=== PATIENT | female | born 1970 | race Caucasian/White ===

== ENCOUNTER → 2025-02-26 12:48 | Outpatient (BNVA) | payer OTHER, SELFPAY | PROVIDERS: Visit Provider Physician Assistant | DX: S52.125A Nondisplaced fracture of head of left radius, initial encounter for closed fracture (principal); W18.30XA Fall on same level, unspecified, initial encounter | CPT/HCPCS: 29125; 73080; 99204 ==

== ENCOUNTER → 2025-03-03 13:15 | Outpatient (BNVA) | payer OTHER, SELFPAY | PROVIDERS: Visit Provider Physician Assistant | DX: S52.125D Nondisplaced fracture of head of left radius, subsequent encounter for closed fracture with routine healing (principal); W18.30XD Fall on same level, unspecified, subsequent encounter; M25.512 Pain in left shoulder; M25.532 Pain in left wrist | CPT/HCPCS: 73030; 99215 ==

== ENCOUNTER 2025-03-11 08:10 | Outpatient (REF) | payer OTHER, SELFPAY ==
--- NOTE | ~2025-03-11 | XR_ITS ---
EXAMINATION: XR ELBOW, LEFT CLINICAL INFORMATION: M25.522 - Pain in left elbow COMPARISON: 02/26/2025 TECHNIQUE: AP, lateral, and oblique views of the left elbow. FINDINGS: Again seen is an intra-articular fracture involving the radial head. There is no gap or step-off. Fracture line shows increasing density consistent with healing. Fat pad displacement has decreased since the prior. XR/XR elbow LT min 3V IMPRESSION: Healing radial head fracture Electronically signed by: Prasad Tena MD 03/11/2025 11:13 AM EDT
== END 2025-03-11 08:11 | disposition home or self-care (01) ==
LOC: HO.HOSX 08:10
PROVIDERS: Visit Provider Physician Assistant
DX: S52.125D Nondisplaced fracture of head of left radius, subsequent encounter for closed fracture with routine healing (principal); W19.XXXD Unspecified fall, subsequent encounter; Y99.0 Civilian activity done for income or pay
CPT/HCPCS: 73080; 99202

== ENCOUNTER 2025-03-11 10:55 | Outpatient (AMB) | payer OTHER, SELFPAY ==
--- NOTE | 2025-03-11 11:07 | A.OFFVIS_ITS ---
Vital Signs 03/11/25 11:16 Height 5 ft 4 in Weight 170 lb BMI 29.2 Intake Visit Reasons: Fracture/ HOST HOSTESS- Left Radial head fx DOI 02/26/25 Intake Note: Radha is a 55 year old right hand dominant female who presents today as a new patient for a workers comp evaluation of left radial head fracture, DOI 02/26/25. Patient was seen at work connection after she sustained a fall at work. She was placed in a posterior splint and referred to orthopedics. Today patient reports her shoulder causes her the most discomfort. No numbness or tingling. Complaints of pain in small finger. She continues to work with only restriction of able to leave if her arm becomes sore. Allergies sulfamethoxazole (From Bactrim) Allergy (Verified 03/11/25 11:14) Redness of Skin trimethoprim (From Bactrim) Allergy (Verified 03/11/25 11:14) Redness of Skin Medication List - Last Reconciled 03/11/25 by Francesca Cantu PA-C atorvastatin 10 mg PO DAILY celecoxib (Celebrex) 200 mg PO BID 30 days fluoxetine 80 mg PO DAILY gabapentin 600 mg PO QID losartan 75 mg PO DAILY pantoprazole 40 mg PO BID HPI HPI Fracture/ HOST HOSTESS- Left Radial head fx DOI 02/26/25: Details: 55 yo female presents to the office today for an injury she sustained to the left elbow on 02/26/25 . She states she was walking at work and fell landing on the left side. She was seen by work connection where x-rays were obtained and showed a radial head fracture. She was placed in a splint and referred to our office for ortho follow up She has been working since the injury without patient care. 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 No open wounds. She can fully extend and flex the elbow she can supinate and pronate without pain. Neurovascularly intact. Office Procedures AMB Fracture Care Fracture Billing Code: Fracture Billing Code Results Reviewed Results Reviewed: Xrays were obtained in the office today and personally reviewed by me of the left elbow show non displaced radial head fracture Assessment & Plan Assessment & Plan (1) Left radial head fracture: Code(s): S52.122A - Displaced fracture of head of left radius, initial encounter for closed fracture Category: Medical Plan: We discussed options today which includes continued conservative management for a nondisplaced radial head fracture. She has good range of motion and we will continue working on this on her own. She will continue with work restrictions returning to work on 03/11 with no patient contact. She will avoid lifting anything heavier than 5 lb. I would like to see her back in 4 weeks with x- rays, sooner if needed. Orders: Orders XR elbow LT min 3V Today M25.522 - Pain in left elbow Medications: New celecoxib (Celebrex) 200 mg PO BID 60 caps 3RF 30 days Coding Level of Care Code New Pt Level 3 (42380) Complex EM visit Add On G2211 Diagnoses Left radial head fracture S52.122A CPT Codes Fracture Care - Fracture Billing Code: Fracture Billing Code ([id number])
[2025-03-11 11:16] VITALS: BMI 29.2
== END 2025-03-11 11:38 | disposition home or self-care (01) ==
LOC: HO.HOS 10:55
PROVIDERS: Visit Provider Physician Assistant
DX: S52.122A Displaced fracture of head of left radius, initial encounter for closed fracture (principal)
CPT/HCPCS: 99203; G2211

== ENCOUNTER → 2025-03-11 11:04 | Outpatient (BNV) | payer OTHER, SELFPAY | PROVIDERS: Visit Provider Radiology Diagnostic Radiology | DX: S52.121D Displaced fracture of head of right radius, subsequent encounter for closed fracture with routine healing (principal) | CPT/HCPCS: 73080 ==

== ENCOUNTER 2025-03-29 09:06 | Outpatient (AMB) | payer OTHER, SELFPAY ==
--- NOTE | 2025-03-29 09:12 | MHC.OFFVIS ---
Intake Visit Reasons: migraine without status migrainosus Allergies sulfamethoxazole (From Bactrim) Allergy (Verified 03/11/25 11:14) Redness of Skin trimethoprim (From Bactrim) Allergy (Verified 03/11/25 11:14) Redness of Skin HPI Comments Details: 55-year-old female with family history of tremor and anxiety disorder, being treated for depression for many years, presenting with concerns regarding tremor and related symptoms. Over the past year, she has noticed tremors primarily in her hands, particularly when others point them out during daily activities. The tremor is not severe enough to disrupt tasks like holding a cup. Associated with these are episodes of involuntary movements or jumps during the night, ranging from 20 to 30 occurrences. She also reports numbness in her face and increased nervousness. She is concerned about whether these symptoms could indicate a more serious condition like Parkinson's disease or multiple sclerosis, although she has been reassured that these symptoms are more consistent with benign essential tremor associated with anxiety. The patient's background includes a prescription of Fluoxetine 80 mg since 1996 for depression, with noted seasonal increases in depressive symptoms, and Gabapentin for managing hot flashes. Her family history includes anxiety disorders in her siblings and her youngest son who also experiences seizures. 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 Complain of fatigue. HEENT:?No vision changes, hearing loss, nasal congestion, sore throat. Cardiovascular:?No chest pain, palpitations, orthopnea, PND, or leg swelling. Respiratory:?No cough, shortness of breath, wheezing, or hemoptysis. Gastrointestinal:?No nausea, vomiting, abdominal pain, diarrhea, or constipation. Genitourinary:?No dysuria, frequency, incontinence, or hematuria. Musculoskeletal:?No joint pain, stiffness, weakness, or muscle aches. Neurological:? Has tremor headache and neck pain. Also complain of dizziness. Psychiatric:? Significant anxiety. Endocrine:?No heat/cold intolerance, polydipsia, polyuria, or hair/skin changes. Hematologic/Lymphatic:?No easy bruising, bleeding, or lymphadenopathy. Integumentary (Skin):?No rash, lesions, itching, or color changes. Allergic/Immunologic:?No seasonal allergies, hives, or recurrent infections. Physical Exam Neuro Other: Mental Status: Alert and oriented to person, place, and time. Normal attention. Normal spontaneous speech, fluency, and comprehension. No obvious issues with mood and memory. Affect is quite anxious. Cranial Nerves: CN II: Visual uribe full to confrontation, visual acuity intact. CN III, IV, : Pupils equal, round, reactive to light and accommodation. Extraocular movements are normal. CN V: Facial sensation is normal. CN VII: Facial movements symmetrical. CN VIII: Hearing intact to bedside conversation is normal. CN IX, X: Palate elevates symmetrically. CN XI: Shoulder shrug and head turn symmetrical. CN XII: Tongue midline without atrophy or fasciculations. Motor: Bulk and tone normal in all extremities. No significant muscle weakness in arms and legs. No drift. Reflexes: Deep tendon reflexes 2+ and symmetric. Plantar response down-going bilaterally. Coordination: Khtyzl-xv-gyiq and aazq-yl-[id number] testing normal. No dysmetria. Gait and Station: No obvious gait abnormality. No ataxia or instability. Facial expression blinking were normal. There was mild bilateral hand postural tremor. Speech: Normal; no dysarthria or tremor. 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 Benign essential familial tremor 2. Chronic anxiety/depression with family history of similar problems 3. 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 Reassurance and education 2. Propranolol 20 mg 1 a day as needed 3. EEG to rule out possibility of seizure disorder Orders: Orders EEG Routine Today G25.3 - Myoclonus, G40.909 - Epilepsy, unspecified, not intractable, without status epilepticus Medications: New propranolol 20 mg orally one a day as needed; 30 tabs 0RF Coding Level of Care Code New Pt Level 4 (31237) Diagnoses Benign familial tremor G25.0 Generalized anxiety disorder F41.1 Anxiety disorder type: generalized anxiety disorder Sleep myoclonus G25.3
--- OUTSIDE RECORDS SUMMARY | 2025-03-29 09:58 | XMS_ITS | Clinical Summary ---
Author Organization [employer] Address [address] [place] [address] Care Team Providers Care Director Special Education Name Role Phone Nidhi Spencer AEROSPACE MEDICINE PHYSICIAN Primary Care Provider [phone] Allergies Active Allergy Reactions Criticality Noted Date Comments Sulfamethoxazole-Trimethoprim Rash Low 2019 Medications atorvastatin (Lipitor) 10 MG tablet Take 10 mg by mouth in the morning. 2 Active [facility] Headache Relief 250-250-65 MG tablet TAKE 2 TABLETS BY MOUTH NEEDED PAIN 2 Active pantoprazole (ProtoNix) 40 MG EC tabletIndications :Chronic gastritis, presence of bleeding unspecified, unspecified gastritis type Take 1 tablet (40 mg) by mouth 2 times daily. /90 days 180 tablet 3 4 Active cyclobenzaprine (Flexeril) 5 MG tablet TAKE 1 TABLET BY MOUTH AT BEDTIME NEEDED FOR MUSCLE SPASM 30 tablet 5 Active Additional Information Patient not taking.Reported on 08/12/2024 losartan (Cozaar) 50 MG tabletIndications :Hypertension, unspecified type TAKE 1 AND 1/2 TABLETS BY MOUTH DAILY/90 DAYS 135 tablet 3 5 Active gabapentin (Neurontin) 600 MG tabletIndications :Low back pain associated with a spinal disorder other than radiculopathy or spinal stenosis Take 1 tablet (600 mg) by mouth 4 times daily. 120 tablet 3 5 Active atorvastatin (Lipitor) 10 MG tablet Take 1 tablet (10 mg) by mouth Once per day. 90 tablet 2 5 026 Active FLUoxetine (PROzac) 40 MG capsuleIndication s:Depressive disorder TAKE 2 CAPSULES BY MOUTH ONCE DAILY FOR 90 DAYS 180 capsule 5 Active Active Problems Problem Noted Date Diagnosed Date Low back pain associated wit h a spinal disorder other than radiculopathy or spinal stenosis 05/22/2022 Avitaminosis D 05/22/2022 Chronic fatigue 05/22/2022 Chronic gastritis 05/22/2022 Depressive disorder 05/22/2022 Overview (06/01/2022): Rx fluoxetine 40mg. Mood is stable Migraine 05/22/2022 Hot flashes, menopausal 05/22/2022 Overview (06/01/2022): On gabapentin, takes 1/2 600mg tab 1-2x daily. LMP >10 years ago Mitral valve prolapse 05/22/2022 Chronic pain syndrome 05/22/2022 Overview (06/12/2022): Chronic low back pain due to multiple injuries. Was on morphine 15mg but recently trasitioned to hydrocodone-acetominophen 10-325. No longer taking either. Feels ok, sometimes has pain. Continue gabapentin. MME: 10.0 Utox 08/2021 CSA 03/2021 Other hyperlipidemia 05/22/2022 Overview (06/01/2022): Rx lipitor, significantly elevated cholesterol 09/2020. Did not get repeat labs Positive antinuclear antibody 01/29/2020 Benign essential hypertension 03/24/2018 Overview (06/12/2022): She was on very low dose of atenolol that has since been discontinued by cardiology. Was recently in ED for high BP as she ran out of meds. Pt concerned about diastolic being high today and at work. Will increase losartan to 1.5 tabs daily. Takotsubo cardiomyopathy 03/24/2018 Overview (06/01/2022): She has a history of a cardiomyopathy but this resolved. She has had no recurrence. She feels well in general. Recurrence is unlikely. Her repeat echocardiograms are fairly normal. Encounters Date Type Department Care Team Description 02/08/2025 Toribio Eduardo [facility] [address] [place] [id number] Nidhi Spencer FNP Depressive disorder from Last 3 Months Immunizations Immunization Administration Dates Next Due Influenza Injectable Quadriv alant Preservative Free IIV4 MDCK 04/06/2020 Influenza injectable quadriv alent preservative free 04/22/2022 Influenza, IIV3, injectable 03/24/2021,1 06/06/2019,03/08/2015,2013 Influenza, Split (incl. ashley fied surface antigen) 03/17/2013,05/17/2011,07/14/2009 MMR 11/03/1991 Moderna Covid-19 Vaccine 12+ 07/11/2020,06/16/19 21 Novel [id number], all formulations 07/14/2009 TD (adult), 2 Lf tetanus tox oid, preservative free, adsorbed 06/12/2022,12/10/2005 Tdap 07/19/2011 Family History Relation Name Status Comments Brother Brother 1: aliv e, asthma,Alcohol abuse, diagnosed with Substance abuse, daily use Brother 2: alive Father Father: d 52 yrs, in 50, diagnosed with Coronary artery disease (CAD), Hypertension Maternal Grandfather Materna l Grandfather: Maternal Grandmother Paterna l Grandmother: , diagnosed with Cerebrovascular accident NOS, Coronary artery disease (CAD) Mother Mother: d 70 yrs, diagnosed with Cancer of lung Other Maternal Uncle: , diagnosed with Coronary artery disease (CAD)Cousin: Cancer Depression: Both sides Family history: Hypercholesterolemia: both sides Uncle: Alcohol abuse Paternal Grandfather Paterna l Grandfather: , diagnosed with Coronary artery disease (CAD) Sister Sister 1: alive , diagnosed with Thyroid disorder Son asthma Social History Tobacco Use Types Packs/Day Years Used Date Smoking Tobacco: Never Smokeless Tobacco: Never Tobacco Cessation:Counseling Given: Not Answered Alcohol Use Standard Drinks/Week Comments Not Currently 0 (1 standard drink = 0.6 oz pur e alcohol) no Depression Answer Date Recorded Patient Health Questionnaire-9 Score 9 08/12/2024 Patient Health Questionnaire-9 Score 9 08/12/2024 Last PHQ-9: Questionnaire Data Not on file 0 08/12/2024 Depression Answer Date Recorded Patient Health Questionnaire-2 Score 2 08/12/2024 Comments Unknown Sex and Gender Information Value Date Recorded Sex Assigned at Female 06/01/2022 11:39 AM EST Legal Sex Female 8:33 PM EDT Gender Identity Female 06/01/2022 11:39 AM EST Sexual Orientation Don't know 06/08/2022 4: 37 PM EST Last Filed Vital Signs Vital Sign Reading Time Taken Comments Blood Pressure 146/94 08/12/2024 1:44 PM EDT Pulse 64 08/12/2024 1:44 PM EDT Temperature 36.3 C (97.3 F) 08/12/2024 1:44 PM EDT Respiratory Rate 16 04/27/2024 2:24 PM EST Oxygen Saturation 95% 06/12/2022 3:13 PM EST Inhaled Oxygen Concentration - - Weight 77.1 kg (170 lb) 08/12/2024 1:44 PM EDT Height 162.6 cm (5' 4 ) 04/27/2024 2:24 PM EST Body Mass Index 29.18 04/27/2024 2:24 PM EST Plan of Treatment Health Maintenance Due Date Last Done Comments CT Colonography 1968 FIT DNA/Cologuard 1968 FIT 1968 FOBT 1968 HIV Screening 1968 SDOH Screening 1968 Sigmoidoscopy 1968 Alcohol/Substance Use Screening 1980 Hepatitis C Screening 01/10/1986 Hepatitis B Vaccines (1 of 3 - 19+ 3-dose series) 01/10/1987 Pneumococcal Vaccine: 50+ Years (1 of 2 - PCV) 01/10/1987 HPV/Cotest 01/10/1998 Zoster Vaccines (1 of 2) 01/10/2018 Mammogram 07/07/2022 07/07/2020, 02/0 09/2020, 07/07/2020 Cervical Cancer Screening 10/19/2023 Pap Smear 10/19/2023 10/18/2020 COVID-19 Vaccine ( season) 2025 07/24/2021, 07/11/2020, 06/16/2020 Influenza Vaccine (#1) 2025 2, 03/24/2021, 04/06/2020, Additional history exists Depression Monitoring 02/12/2025 08/12/2024, 025 Disability Screening 08/12/2025 08/12/2024 Tobacco Screening 08/12/2025 08/12/2024 Lipid Panel 08/17/2029 08/17/2024, 09/02, 11/25/2019 Colonoscopy 10/01/2030 10/27/2020 Colorectal Cancer Screening 10/01/2030 DTaP/Tdap/Td Vaccines (3 - Td or Tdap) 06/12/2032 06/12/2022, 07/19/2011, 12/10/2005 RSV Patients and Patients Aged 60 years or older (1 - 1-dose 75+ series) 01/10/2043 HIB Vaccines Aged Out No longer eligi ble based on patient's age to complete this topic HPV Vaccines Aged Out No longer eligi ble based on patient's age to complete this topic Hepatitis A Vaccines Aged Out No long er eligible based on patient's age to complete this topic IPV Vaccines Aged Out No longer eligi ble based on patient's age to complete this topic Meningococcal B Vaccine Aged Out No l onger eligible based on patient's age to complete this topic Meningococcal Vaccine Aged Out No kwan raza eligible based on patient's age to complete this topic RSV under 20 months Aged Out No longe r eligible based on patient's age to complete this topic Rotavirus Vaccines Aged Out No longer eligible based on patient's age to complete this topic Procedures Procedure Name Priority Date/Time Associated Diagnosis Comments LIPID PANEL, STANDARD Routine 08/17/2024 8:02 AM EDT Other hyperlipidemia COLONOSCOPY Routine 10/27/2020 12:00 AM EDT THIN PREP PAP Routine 10/18/2020 12:00 AM EDT BI MAMMOGRAM DIAGNOSTIC BILATERAL Routine 07/07/2020 3:07 PM EST from Last 3 Months or Most Recently Relevant to Health Maintenance Results * (ABNORMAL) Lipid Panel, Standard (08/17/2024 8:02 AM EDT) Cholesterol, Total 312(H) 100 - 199 mg/dL [facility] Triglycerides 147 0 - 149 mg/dL [facility] HDL Cholesterol 88 >39 mg/dL [facility] VLDL Cholesterol Pablo 26 5 - 40 mg/dL [facility] LDL Chol Calc ([facility]) 198(H) 0 - 99 mg/dL [facility] LDL Calc Comment: [facility] Comment: Consider evaluating for Familial Hypercholesterolemia(FH), if clinically indicated. Blood Venous blood specimen / Unknown 08/17/2024 8:02 AM EDT 08/17/2024 Narrative [facility] - 08/18/2024 12:05 AM EDT Performed at: 01 - [facility] [address] [id number] Dermatology Sales Representative: Lyla Cabrera MD, Phone: [phone] Nidhi Spencer AEROSPACE MEDICINE PHYSICIAN LAB BLOOD ORDERABLES Gifty l Result [facility] * -EGD-COLONOSCOPY (10/27/2020 12:00 AM EDT) Anatomical Region Laterality Modality Endoscopy 10/27/2020 Narrative 10/27/2020 12:00 AM EDT Refer to [facility] for result details [facility] Procedure: -EGD-COLONOSCOPY Procedure Note Provider, MD Rosina - 09/27/2022 Refer to [facility] for result details [facility]: -EGD-COLONOSCOPY Historical Provider ENDOSCOPY PROCEDURE ORDER CHERYL Final Result * THIN PREP PAP (10/18/2020 12:00 AM EDT) Historical Provider LAB CYTOLOGY ORDERABLES F inal Result [facility] [address] [place] [id number] * BI MAMMOGRAM SCREENING WITH TOMOSYNTHESIS WITH CAD (BILATERAL) (07/07/2020 3:07 PM EST) Anatomical Region Laterality Modality Breast Bilateral Mammography 07/07/2020 3:07 PM EST Narrative 07/07/2020 8:16 PM EST Refer to [facility] for result details [facility] Procedure: BI MAMMOGRAM SCREENING WITH TOMOSYNTHESIS WITH CAD (BILATERAL) Procedure Note Provider, Rosina, - 08/25/2022 Refer to Damian for result details [facility] Procedure: BI MAMMOGRAM SCREENING WITH TOMOSYNTHESIS WITH CAD(BILATERAL) us Historical Provider IMMiguel BI PROCEDURES Final R esult from Last 3 Months or Most Recently Relevant to Health Maintenance Care Teams Director Special Education Relationship Specialty Start Date End Date Nidhi Spencer FNP [address] [place] [address] PCP - General Family Medicine 08/12/24
--- OUTSIDE RECORDS SUMMARY | 2025-03-29 09:58 | XMS_ITS | Encounter Summary ---
Author Organization [employer] Address [address] [facility] [address] [place] [address] Care Team Providers Care Chiropractic Neurologist Name Role Phone Gissel Guadarrama PA-C Primary Care Provider Nidhi Sweet Primary Care Provider [phone] Encounter Details Date Type Department Care Team (Late st Contact Info) Description 05/22/2022 Orders Only [facility] [address] [place] [address] Gissel Guadarrama PA-C Social History Tobacco Use Types Packs/Day Years Used Date Smoking Tobacco: Never Assessed Comments Unknown Sex and Gender Information Value Date Recorded Sex Assigned at Female 06/01/2022 11:39 AM EST Legal Sex Female 8:33 PM EDT Gender Identity Female 06/01/2022 11:39 AM EST Sexual Orientation Don't know 06/08/2022 4: 37 PM EST documented as of this encounter Plan of Treatment Not on file documented as of this encounter Visit Diagnoses Not on filedocumented in this encounter Care Teams Chiropractic Neurologist Relationship Specialty Start Date End Date Gissel Guadarrama PA-C PCP - General Family Medicine 05/22/22 08/11/24 Nidhi Spencer FNP [address] [place] [address] PCP - General Family Medicine 08/12/24 documented as of this encounter
== END 2025-03-29 09:27 | disposition home or self-care (01) ==
LOC: HO.HSM 09:07
PROVIDERS: Visit Provider Psychiatry & Neurology Neurology
DX: G25.0 Essential tremor (principal); F41.1 Generalized anxiety disorder; G25.3 Myoclonus
CPT/HCPCS: 99204

== ENCOUNTER 2025-04-14 15:47 | Outpatient (REF) | payer OTHER, SELFPAY ==
--- OUTSIDE RECORDS SUMMARY | 2025-04-15 18:38 | XMS_ITS | Encounter Summary ---
Author Organization [facility] Address [address] [place] [address] Phone Care Team Providers Care Business Continuity Coordinator Name Role Phone RiannaSavanna buckley [place] CYBER DEFENSE ANALYST Unavailable [phone] Shamika Lucio CYBER DEFENSE ANALYST Unavailable [phone] Eun Jacques MD Unavailable [phone] Shabbir Vogel NP Primary Care Provider [phone] Neva Parada MD Primary Care Provider [phone] Encounter Details Date Type Department Care Team (Late st Contact Info) Description 03/29/2020 Procedure Pass [facility], [address] [address] Social History Tobacco Use Types Packs/Day Years Used Date Smoking Tobacco: Never Smokeless Tobacco: Never Alcohol Use Standard Drinks/Week Comments Not Currently 0 (1 standard drink = 0.6 oz pur e alcohol) Comments No Sex and Gender Information Value Date Recorded Sex Assigned at Not on file Legal Sex Female 9:37 PM EDT Gender Identity Not on file Sexual Orientation Not on file documented as of this encounter Plan of Treatment Not on file documented as of this encounter Visit Diagnoses Not on filedocumented in this encounter Care Teams Business Continuity Coordinator Relationship Specialty Start Date End Date Shabbir Vogel NP [address] [place] [address] [email or web address] PCP - General Family Medicine 6/24/20 5/26/21 Neva Parada MD [address] [place] [address] [email or web address] PCP - General Internal Medicine 10/27/20 Savanna Julian NP [address] [place] [phone] Historical LMR Provider 03/20/17 2 Shamika Lucio NP [address] [place] [id number] Historical LMR Provider 03/20/17 2 Eun Jacques MD [address] [place] [address] [email or web address] Historical LMR Provider 03/20/1706/10 documented as of this encounter Additional Source Comments The information contained in this document represents components of the legal health record. It is not the complete legal health record.[facility]
--- OUTSIDE RECORDS SUMMARY | 2025-04-15 18:38 | XMS_ITS | Encounter Summary ---
Author Organization [facility] Address Formerly [facility], 1928–[address] Straight Up English [address] [address] Phone Care Team Providers Care Rim Fire Charger Operator Name Role Phone Neva Parada MD Primary Care Provider [phone] Encounter Details Date Type Department Care Team (Late st Contact Info) Description 04/27/2024 Procedure Pass [facility], [address] [address] Social History Tobacco Use Types Packs/Day Years Used Date Smoking Tobacco: Never Smokeless Tobacco: Never Alcohol Use Standard Drinks/Week Comments Not Currently 0 (1 standard drink = 0.6 oz pur e alcohol) Education Answer Date Recorded Are you interested in more education? Not on mary e 09/28/2022 Are you concerned about learning? Not on file 09/28/2022 No 09/28/2022 No 09/28/2022 Digital Access Answer Date Recorded No 10/27/2022 No 10/27/2022 Reliable internet access at home? Not on file 10/27/2022 Device with a working camera? Not on file Comments No Sex and Gender Information Value Date Recorded Sex Assigned at Not on file Legal Sex Female 9:37 PM EDT Gender Identity Not on file Sexual Orientation Not on file documented as of this encounter Last Filed Vital Signs Vital Sign Reading Time Taken Comments Blood Pressure - - Pulse - - Temperature - - Respiratory Rate - - Oxygen Saturation - - Inhaled Oxygen Concentration - - Weight 75.8 kg (167 lb) 04/29/2024 6:52 PM EST Height 162.6 cm (5' 4 ) 04/29/2024 6:52 PM EST Body Mass Index 28.67 04/29/2024 6:52 PM EST documented in this encounter Plan of Treatment Not on file documented as of this encounter Visit Diagnoses Not on filedocumented in this encounter Care Teams Rim Fire Charger Operator Relationship Specialty Start Date End Date Neva Parada MD [address] [place] [id number] [email or web address] PCP - General Internal Medicine 10/27/20 documented as of this encounter Additional Source Comments The information contained in this document represents components of the legal health record. It is not the complete legal health record.[facility]
--- OUTSIDE RECORDS SUMMARY | 2025-04-15 18:38 | XMS_ITS | Encounter Summary ---
Author Organization [facility] Address [facility] [employer] [facility] [address] [place] [address] Phone Care Team Providers Care Metal Molder Name Role Phone Neva Parada MD Primary Care Provider [phone] Encounter Details Date Type Department Care Team (Latest Contact Info) Description 06/11/2022 Transcribe Orders [facility] [address] [place] [address] Emi Squires PA-C [address], [address] [place] [address] [email or web address] Abdominal pain, epigastric (Primary Dx) Social History Tobacco Use Types Packs/Day Years [...] on file documented as of this encounter Results * Lipase (06/11/2022 3:06 PM EST) LIPASE 21 16 - 63 U/L [facility] Blood 06/11/2022 3:06 PM EST 06/11/2022 3:08 PM EST us Emi Squires PA-C LAB BLOOD BKR ORDERABLES Final Result [address] [address] * C-Reactive Protein (06/11/2022 3:06 PM EST) C REACTIVE PROTEIN <3.0 0.0 - 4.0 mg/L [facility] Blood 06/11/2022 3:06 PM EST 06/11/2022 3:08 PM EST Emi Squires PA-C LAB BLOOD BKR ORDERABLES Final Result [address] [address] * Comprehensive metabolic panel (06/11/2022 3:06 PM EST) SODIUM 138 133 - 146 mmol/L [facility] POTASSIUM 4.7 3.3 - 5.1 mmol/L [facility] CHLORIDE 101 96 - 108 mmol/L [facility] CO2 29 21 - 35 mmol/L [facility] BUN 15 6 - 19 mg/dL [facility] CREATININE 0.70 0.5 - 1.5 mg/dL [facility] GLUCOSE 80 70 - 99 mg/dL [facility] ALBUMIN 4.6 3.9 - 4.8 g/dL [facility] TOTAL PROTEIN 7.3 6.5 - 8.0 g/dL [facility] CALCIUM 9.8 8.4 - 10.3 mg/dL [facility] ALKALINE PHOSPHATASE 61 39 - 117 U/L [facility] TOTAL BILIRUBIN 0.2 0.0 - 1.2 mg/dL [facility] AST 18 0 - 37 U/L [facility] ALT 11 0 - 40 U/L [facility] GLOBULIN 2.7 1 - 4.8 g/dL [facility] EGFR 103 >59 mL/min/1.7 3m2 [facility] Comment:Estimated glomerular filtration rate calculated using the CKD-EPI refit equation. ANION GAP 13 10 - 20 mmol/L [facility] Blood 06/11/2022 3:06 PM EST 06/11/2022 3:08 PM EST us Emi Squires PA-C LAB BLOOD BKR ORDERABLES Final Result Performing Organization Address [facility]/ZIP Co de Phone Number [address] [address] * CBC (06/11/2022 3:06 PM EST) WBC 7.44 4.00 - 11.00 K/uL [facility] RBC 4.04 3.72 - 5.30 M/uL [facility] HGB 12.5 10.6 - 15.5 g/dL [facility] HCT 38.5 32.0 - 45.0 % [facility] PLT 292 140 - 430 K/uL [facility] MCV 95.3 78.0 - 97.0 fL [facility] MCH 30.9 25.0 - 33.0 pg [facility] MCHC 32.5 32.0 - 36.0 g/dL [facility] RDW 13.3 11.0 - 16.0 % [facility] MPV 9.9 8.4 - 12.8 fl [facility] Blood 06/11/2022 3:06 PM EST 06/11/2022 3:08 PM EST us Emi Squires PA-C LAB BLOOD BKR ORDERABLES Final Result Performing Organization Address [facility]/ZIP Co de Phone Number [address] [address] * Immunoglobulin A (06/11/2022 3:06 PM EST) IgA 272 70 - 400 mg/dL [facility] Blood 06/11/2022 3:06 PM EST 06/11/2022 3:08 PM EST us Emi Squires PA-C LAB BLOOD BKR ORDERABLES Final Result Performing Organization Address City/[facility]/ZIP Co de Phone Number [address] [place] [address] * Tissue transglutaminase IgA (06/11/2022 3:06 PM EST) TTG IGA ANTIBODY <1.2 <4.0 (Negative) U/mL [facility] Blood 06/11/2022 3:06 PM EST 06/11/2022 3:08 PM EST us Emi Squires PA-C LAB BLOOD BKR ORDERABLES Final Result [facility] [address] [place] [address] documented in this encounter Visit Diagnoses Diagnosis Abdominal pain, epigastric- Primary documented in this encounter Care Teams Metal Molder Relationship Specialty Start Date End Date Neva Parada MD [address] [place] [address] [email or web address] PCP - General Internal Medicine 10/27/20 documented as of this encounter Additional Source Comments The information contained in this document represents components of the legal health record. It is not the complete legal health record.[facility]
--- OUTSIDE RECORDS SUMMARY | 2025-04-15 18:38 | XMS_ITS | Encounter Summary ---
Author Organization [facility] Address [address] [place] [address] Phone Care Team Providers Care Blade Grinder Name Role Phone Savanna Julian MORTGAGE LOAN ASSISTANT Unavailable [phone] Shamika Lucio MORTGAGE LOAN ASSISTANT Unavailable [phone] Eun Jacques MD Unavailable [phone] Eun Jacques MD Primary Care Provid er Rachel Conley MD Primary Care Provider [phone] Shabbir Vogel NP Primary Care Provider [phone] Neva Parada MD Primary Care Provider [phone] Encounter Details Date Type Department Care Team (Latest Contact Info) Description 08/28/2017 Ancillary Orders Virtual Department [address] [place], [place] [id number] Rachel Conley MD [address] [place], [place] [id number] [email or web address] Takotsubo cardiomyopathy Social History Tobacco Use Types Packs/Day Years Used Date Smoking Tobacco: Never Assessed Comments Unknown Sex and Gender Information Value Date Recorded Sex Assigned at Not on file Legal Sex Female 9:37 PM EDT Gender Identity Not on file Sexual Orientation Not on file documented as of this encounter Plan of Treatment Not on file documented as of this encounter Results * TTE COMPREHENSIVE (09/06/2017 10:26 AM EDT) Body Surface Area 1.9 m2 Height 165 m Weight 79 kg Systolic BP 137 mmHg Diastolic BP 66 mmHg Left Atrium Dimension Anterior-Posterior 38 15 - 40 mm Aortic Valve Peak Velocity 747.00 mm/s Aortic Valve Peak Gradient 2.00 mmHg Aortic Sinus Diameter 34 mm Ascending Aorta Diameter 31 mm Inferior Vena Cava Diameter 21 0.0 - 21 mm Interventricular Septum Thickness 9 mm Left Ventricle Internal Diameter End Diastole 57 37 - 52 mm Left Ventricle Internal Diameter End Systole 31 22 - 35 mm Left Ventricular Outflow Tract Diameter 19.00 mm LVOT VTI REST 151.00 mm Left Ventricular Outflow Tract Velocity 737.00 mm/s Left Ventricular Outflow Tract Gradient at Rest 2.00 mmHg Left Ventricular Posterior Wall Thickness 10 mm Ejection Fraction 75 50 - 75 Percent Mitral Valve Deceleration Time 250.00 ms Mitral Valve A Wave Speed 615.00 mm/s Mitral Valve E Wave Speed 566.00 mm/s Right Ventricle Basal Diameter 23.00 25 - 41 mm Tricuspid Valve Peak Velocity 2.77 mm/s Raw LV EF% 70 % Aortic Valve Sinus Index 1 18 20 - 32 mm Ascending Aorta Diameter 16 mm Aortic Sinus Index 18 mm Ascending Aorta Index 16 mm Anatomical Region Laterality Modality Heart Ultrasound Narrative 09/06/2017 11:26 AM EDT The left ventricular cavity size and wall thickness are normal. Left ventricular systolic function is normal The estimated ejection fraction is 75% Doppler profiles appear consistent with impaired left ventricular relaxation The left atrium is mildly dilated There is mild mitral regurgitation Borderline mildly elevated pulmonary artery Compared to a prior TTE from 09/14/2015 mitral valve prolapse cannot be confirmed on the present study. No other significant interval change Left Ventricle The left ventricular cavity size and wall thickness are normal. Left ventricular systolic function is normal. There are no segmental left ventricular wall motion abnormalities noted. The estimated ejection fraction is 75% (Normal 50-75%). The left ventricular ejection fraction was measured by visual estimate. Doppler profiles appear consistent with impaired left ventricular relaxation (a sign of diastolic dysfunction). There is no evidence of left ventricular thrombus. Right Ventricle The right ventricular size is normal. No evidence of right ventricular hypertrophy. The right ventricular systolic function is normal. Left Atrium The left atrium is mildly dilated. LA ESV index is 42.4 ml/m2. The left atrial anterior-posterior dimension measures 38 mm (normal 15-40 mm). The pulmonary venous flow profiles are normal. Pulmonary vein connections were not well seen. Right Atrium The right atrium is normal in size. The IVC is normal in size (2.1cm or less). The IVC measures 21 mm (normal <=21 mm). The IVC demonstrates normal collapse with inspiration which is consistent with normal RA pressure. Mitral Valve The mitral valve appears normal. The E/A ratio is 0.9. The E/E' AVG is 7.1. There is no evidence of mitral stenosis. There is no evidence of mitral valve prolapse. There is mild mitral regurgitation detected by spectral and color Doppler. Tricuspid Valve The tricuspid valve appears normal. There is no evidence of tricuspid stenosis. The peak TR gradient is 31mmHg. The RAP is 3. The estimated RVSP is 34mmHg. Borderline mildly elevated pulmonary artery pressure. There is evidence of trace tricuspid regurgitation by color and spectral Doppler. Aortic Valve The aortic valve appears normal. The aortic valve is tricuspid. There is no evidence of valvular aortic stenosis. The peak aortic valve gradient is 2 mmHg. There is no evidence of aortic regurgitation by color and spectral Doppler. Pulmonic Valve Pulmonary valve was not well visualized. The pulmonary valve appears normal. There is no evidence of pulmonic stenosis. There is evidence of trace pulmonary regurgitation by color and spectral Doppler. Pericardium There is no evidence of pericardial effusion. There no evidence of a pleural effusion. Interatrial Septum The interatrial septum appears normal. Interventricular Septum Interventricular septal motion appears abnormal. There is discrete upper septal hypertrophy without evidence of outflow obstruction. General Findings The image quality was fair (3). Comparison Findings Compared to a prior TTE from 09/14/2015 mitral valve prolapse cannot be confirmed on the present study. No other significant interval change. us Rachel Conley MD CV ECHO ORDERABLES Final Result documented in this encounter Visit Diagnoses Diagnosis Takotsubo cardiomyopathy Takotsubo syndrome Takotsubo cardiomyopathy Takotsubo syndrome documented in this encounter Care Teams Blade Grinder Relationship Specialty Start Date End Date Eun Jacques MD [address] [place] [address] [email or web address] PCP - General 06/06/17 08/28/17 Rachel Conley MD [address] [place] [address] [email or web address] PCP - General Family Medicine 08/29/17 11/24/19 Shabbir Vogel NP [address] [place] [address] [email or web address] PCP - General Family Medicine 11/25/19 10/26/20 Neva Parada MD [address] [place] [address] [email or web address] PCP - General Internal Medicine 10/27/20 Savanna Julian NP [address] [place] [phone] Historical LMR Provider 03/20/17 2 Shamika Lucio NP [address] [place] [address] Historical LMR Provider 03/20/17 2 Eun Jacques MD [address] [place] [address] [email or web address] Historical LMR Provider 03/20/1706/10 documented as of this encounter Additional Source Comments The information contained in this document represents components of the legal health record. It is not the complete legal health record.[facility]
--- OUTSIDE RECORDS SUMMARY | 2025-04-15 18:38 | XMS_ITS | Clinical Summary ---
Author Organization [facility] Address [address] [facility] [address] [place] [address] Phone Care Team Providers Care Software Recruiter Name Role Phone Neva Parada MD Primary Care Provider [phone] Allergies Active Allergy Reactions Criticality Noted Date Comments Sulfamethoxazole-Trimethoprim Rash Low 2019 Medications gabapentin (NEURONTIN) 300 MG capsule Take 1 capsule by mouth nightly at bedtime. Active morphine (MSIR) 15 MG tablet Take 15 mg by mouth daily. Active omeprazole (PRILOSEC) 40 MG capsule Take 40 mg by mouth daily. Active atorvastatin (LIPITOR) 10 MG tablet Take 10 mg by mouth daily. Active escitalopram oxalate (LEXAPRO) 5 MG tablet Take 5 mg by mouth daily. Active losartan (COZAAR) 50 MG tablet Take 1 tablet (50 mg total) by mouth daily. 30 tablet 04/23/2022 Active Active Problems Problem Noted Date Diagnosed Date Acute pain of both shoulders 01/29/2020 Acute bilateral low back pain without sciatica 0 01/29/2020 Positive DAPHNE (antinuclear antibody) 01/29/2020 Takotsubo cardiomyopathy 03/24/2018 Assessment & Plan (03/24/2018 2:58 PM EDT): She has a history of a cardiomyopathy but this resolved. She has had no recurrence. She feels well in general. Recurrence is unlikely. Her repeat echocardiograms are fairly normal. Benign essential hypertension 03/24/2018 Assessment & Plan (03/24/2018 2:59 PM EDT): Her blood pressure currently is well controlled. She is on a very low dose of atenolol. She has lost a lot of weight and thinks this is why her blood pressure is lower. I think she can safely stop the atenolol. If her blood pressure is high in the future I would recommend she try lisinopril instead. Family History Medical History Relation Comments Coronary artery disease Father Cancer Maternal Grandfather Cancer Mother Coronary artery disease Paternal Grandfather Coronary artery disease Paternal Grandmother Relation Status Comments Father Maternal Grandfather Maternal Grandmother Mother Paternal Grandfather Paternal Grandmother Social History Tobacco Use Types Packs/Day Years [...] on file Sexual Orientation Not on file Last Filed Vital Signs Vital Sign Reading Time Taken Comments Blood Pressure 135/89 04/23/2022 1:16 PM EST Pulse 61 04/23/2022 1:15 PM EST Temperature 35.7 C (96.3 F) 04/23/2022 10:55 AM EST Respiratory Rate 16 04/23/2022 1:15 PM EST Oxygen Saturation 96% 04/23/2022 10:55 AM EST Inhaled Oxygen Concentration - - Weight 75.8 kg (167 lb) 04/29/2024 6:52 PM EST Height 162.6 cm (5' 4 ) 04/29/2024 6:52 PM EST Body Mass Index 28.67 04/29/2024 6:52 PM EST Plan of Treatment Health Maintenance Due Date Last Done Comments BLOOD PRESSURE 1968 DEPRESSION SCREENING 1980 HEPATITIS C SCREENING 01/10/1986 HIV ONE-TIME SCREENING (18-6 5 YEARS) 01/10/1986 COLOGUARD 01/10/2013 COLONOSCOPY 01/10/2013 COLORECTAL CANCER SCREENING 01/10/2013 FIT TEST 01/10/2013 FOBT 01/10/2013 SIGMOIDOSCOPY 01/10/2013 VIRTUAL COLONOSCOPY 01/10/2013 PNEUMOCOCCAL VACCINES (50+ years) (1 of 1 - PCV) 01/10/2018 ZOSTER VACCINES (1 of 2) 01/10/2018 Adult Td,Tdap Booster 07/19/2021 07/19/2011 MAMMOGRAM 07/07/2022 07/07/2020, 07/07/2020, 07/07/2020 PAP SMEAR 10/19/2023 10/18/2020 INFLUENZA VACCINE (#1) 2025 04/06/2020 COVID-19 VACCINE (1 - 2024-2 6 season) 2025 SCREENING FOR DIABETES 06/11/2025 06/11/2022 LIPID PANEL 08/17/2029 08/17/2024, 09/29/2020, 11/25/2019 RSV VACCINE (1 - 1-dose 75+ series) 01/10/2043 SMOKING STATUS SCREENING (On ce After 26 Yrs) Completed 04/23/2022 HEPATITIS A VACCINES Aged Out No long er eligible based on patient's age to complete this topic HIB VACCINES Aged Out No longer eligi ble based on patient's age to complete this topic IPV VACCINES Aged Out No longer eligi ble based on patient's age to complete this topic MENINGOCOCCAL VACCINES (ACWY) Aged Out No longer eligible based on patient's age to complete this topic MENINGOCOCCAL VACCINES (B) Aged Out N o longer eligible based on patient's age to complete this topic Medical Devices Not on file Procedures Procedure Name Priority Date/Time Associated Diagnosis Comments PAP TEST Routine 10/18/2020 12:00 AM EDT BI MAMMOGRAM SCREENING WITH TOMOSYNTHESIS WITH CAD (BILATERAL) Routine 07/07/2020 3:07 PM EST Breast screening LIPID PANEL Routine 11/25/2019 4:16 PM EDT Body aches from Last 3 Months or Most Recently Relevant to Health Maintenance Results * Pap Smear (10/18/2020 12:00 AM EDT) 10/18/2020 10/19/2020 9:2 5 AM EDT Narrative SEE NARRATIVE - 10/26/2020 11:33 [place] [address] Email Manager: Alicia Heath MD SENIOR CYBER SECURITY ANALYST Cytology Report FINAL DIAGNOSIS A. PAP SMEAR (SUREPATH) CE: SPECIMEN ADEQUACY: Satisfactory for evaluation; transformation zone present. INTERPRETATION: NEGATIVE FOR INTRAEPITHELIAL LESION OR MALIGNANCY. Electronically Signed Out By: REJI Marks(ASCP) The Pap test is a screening test primarily for squamous cancers and precursors and has associated false-negative and false-positive results. New technologies such as liquid-based preparations may decrease but will not eliminate all false-negative results. Regular sampling and follow-up of unexplained clinical signs and symptoms are recommended to minimize false negative results. PROCEDURES/ADDENDA HPV Testing (Requested) Ordered Date: 10/19/2020 A. PAP SMEAR (SUREPATH) CE: Human Papilloma Virus Test Negative for high-risk human papillomavirus types 16, 18, 45 and the Other high risk probe set (Includes 31, 33, 35, 39, 51, 52, 56, 58, 59, 66, 68) by [facility] Onclarity HR-HPV analysis. Clinical correlation is advised. This HPV test was performed at [facility], [address] [place] [address]. This test has been FDA approved for SurePath cervical cytology specimens. The accuracy and precision of this test for all other specimen sources has been verified in the Cytopathology Laboratory of the [facility] and has not been cleared or approved by the U.S. Food and Drug Administration. Clinical correlation is advised. CLINICAL HISTORY Date of Last Menstrual Period: Not Provided Menstrual History: Post Menopausal Other Clinical Conditions: Screening Pap SPECIMEN SOURCE A: PAP SMEAR (SUREPATH) CE Patient Name: KAHLIL TOLEDO : 1970 (Age: 50) Sex: F Institution: [facility] Location: [facility] Date of Collection: 10/18/2020 Date of Reported: 10/26/2020 11:33 Results to: Dilshad Monique MD, BS us Dilshad Monique MD CYTOLOGY ORDERABLES Final Res ult SEE NARRATIVE * BI MAMMOGRAM SCREENING WITH TOMOSYNTHESIS WITH CAD (BILATERAL) (07/07/2020 3:07 PM EST) Anatomical Region Laterality Modality Breast Left, Breast Right, Breast Bilateral Bila teral Mammography 07/07/2020 8:11 PM EST Impressions 07/07/2020 8:13 PM EST BILATERAL BREASTS: Benign, no evidence of malignancy. Normal interval follow-up is recommended in 12 months. Bi-RADS: BI-RADS CATEGORY: 2 - Benign finding. DENSITY: The breast tissue is heterogeneously dense, which could obscure a lesion on mammography. Narrative 07/07/2020 8:13 PM EST STUDY: Bilateral screening mammography with tomosynthesis and CAD TECHNIQUE: Bilateral full-field digital screening mammography is obtained and read in conjunction with computer-aided detection. Tomosynthesis as well as 2-D C view imaging were obtained. COMPARISON: Comparison made to January 09, 2017 and April 13, 2015 BREAST COMPOSITION: The breast tissue is heterogeneously dense, which may obscure small masses. BILATERAL BREASTS: Previous bilateral reduction mammoplasty. No significant masses, suspicious calcifications or other abnormalities are seen. Procedure Note Yusra Anderson MD - 07/07/2020 STUDY: Bilateral screening mammography with tomosynthesis and CAD TECHNIQUE: Bilateral full-field digital screening mammography is obtainedand read in conjunction with computer-aided detection. Tomosynthesis aswell as 2-D C view imaging were obtained. COMPARISON: Comparison made to January 09, 2017 and April 13, 2015 BREAST COMPOSITION: The breast tissue is heterogeneously dense, which mayobscure small masses. BILATERAL BREASTS: Previous bilateral reduction mammoplasty. Nosignificant masses, suspicious calcifications or other abnormalities areseen. IMPRESSION: BILATERAL BREASTS: Benign, no evidence of malignancy. Normal intervalfollow-up is recommended in 12 months. Bi-RADS: BI-RADS CATEGORY: 2 - Benign finding. DENSITY: The breast tissue is heterogeneously dense, which could obscurea lesion on mammography. Shabbir Vogel NP IMG MG EXAMS Final Result * (ABNORMAL) Lipid panel (11/25/2019 4:16 PM EDT) HDL 64 mg/dL [facility] Comment: Interpretation <40 mg/dL: Low HDL cholesterol (major risk factor for CHD) Greater than or equal to 60 mg/dL: High HDL cholesterol ( negative risk factor for CHD) HDL - cholesterol is affected by a number of factors, e.g. smoking, excerise, hormones, sex and age. CHOLESTEROL 225 0 - 240 mg/dL [facility] TRIGLYCERIDES 122 30 - 160 mg/dL [facility] LDL 137(H) 50 - 129 mg/dL [facility] Comment: LDL levels in terms of risk for coronary heart disease: <100 mg/dL: Optimal 100-129 mg/dL: Near or above optimal 130-159 mg/dL: Borderline high 160-189 mg/dL: High >190 mg/dL: Very High CARDIAC RISK RATIO 3.5 3.3 - 4.4 C [facility] Blood 11/25/2019 4:16 PM EDT 11/25/2019 4:24 PM EDT Shabbir Vogel NP LAB BLOOD BKR ORDERABLES Gifty l Result [facility] [address] [place] [address] from Last 3 Months or Most Recently Relevant to Health Maintenance [facility] [phone] [place] [id number] [place] [id number] [place] [id number] [place] [id number] [place] [address] [id number] [place] [phone] [place], [place] [address] Care Teams Software Recruiter Relationship Specialty Start Date End Date Neva Parada MD [address] [place] [phone] [email or web address] PCP - General Internal Medicine 10/27/20 Additional Source Comments The information contained in this document represents components of the legal health record. It is not the complete legal health record.[facility]
--- OUTSIDE RECORDS SUMMARY | 2025-04-15 18:38 | XMS_ITS | Encounter Summary ---
Author Organization [facility] Address [facility] [address] [place] [address] Phone Care Team Providers Care Felt Washing Machine Tender Name Role Phone Neva Parada MD Primary Care Provider [phone] Reason for Referral * MRI/CAT Scan - Closed Specialty Diagnoses / Procedures Referred By Contpeyton t Referred To Contact Radiology Diagnoses Sudden onset of severe headache Procedures MRI Brain CHG MRI BRAIN COMBO CHG MRI BRAIN Nidhi [place] CNP Phone: tel: fax: Referral ID Status Reason Start Date Expiration Date Visits Re quested Visits Authorized [id number] Closed 04/27/2024 06/26/2024 1 1 Encounter Details Date Type Department Care Team (Latest Contact Info) Description 04/27/2024 Transcribe Orders Virtual Department [address] [place] [address] Nidhi [place] CNP [address] [place] [address] Sudden onset of severe headache (Primary Dx) Social History Tobacco Use Types [...] documented as of this encounter Results * MRI BRAIN WITHOUT CONTRAST (05/06/2024 8:20 AM EST) Anatomical Region Laterality Modality Head Magnetic Resonan ce 05/07/2024 3:04 PM EST Impressions 05/07/2024 3:08 PM EST 1. No acute infarct, hemorrhage, mass lesion, or hydrocephalus. Narrative 05/07/2024 3:08 PM EST MRI BRAIN WITHOUT CONTRAST Referring clinician's provided indication for this examination in [facility]: Outside Radiology Order; headache TECHNIQUE: MRI BRAIN WITHOUT CONTRAST Multi-sequence, multi-planar MRI of the brain was performed without intravenous contrast. COMPARISON: FINDINGS: Brain Parenchyma: No evidence of acute infarct, mass lesion, or hemorrhage. Ventricular System and Extra-Axial Spaces: There is no evidence of midline shift or hydrocephalus. Partially empty sella turcica. Extracranial Structures: Expected arterial flow signal is observed at the skull base. The extracranial soft tissues and orbits are unremarkable. No osseous lesions are identified. Procedure Note Ariel Lentz MD - 05/07/2024 MRI BRAIN WITHOUT CONTRAST Referring clinician's provided indication for this examination in [facility]:Outside Radiology Order; headache TECHNIQUE: MRI BRAIN WITHOUT CONTRAST Multi-sequence, multi-planar MRI of the brain was performed withoutintravenous contrast. COMPARISON: FINDINGS: Brain Parenchyma: No evidence of acute infarct, mass lesion, orhemorrhage. Ventricular System and Extra-Axial Spaces: There is no evidence of midlineshift or hydrocephalus. Partially empty sella turcica. Extracranial Structures: Expected arterial flow signal is observed at theskull base. The extracranial soft tissues and orbits are unremarkable. Noosseous lesions are identified. IMPRESSION: 1. No acute infarct, hemorrhage, mass lesion, or hydrocephalus. Nidhi Cintron Garretar TUBE ROOM CASHIER IMG MR HEAD/NECK F inal Result documented in this encounter Visit Diagnoses Diagnosis Sudden onset of severe headache- Primary Sudden onset of severe headache documented in this encounter Care Teams Felt Washing Machine Tender Relationship Specialty Start Date End Date Neva Parada MD [address] [place] [address] [email or web address] PCP - General Internal Medicine 10/27/20 documented as of this encounter Additional Source Comments The information contained in this document represents components of the legal health record. It is not the complete legal health record.[facility]
--- OUTSIDE RECORDS SUMMARY | 2025-04-15 18:38 | XMS_ITS | Encounter Summary ---
Author Organization [facility] Address [address] [place] [address] [address] [place] [address] Care Team Providers Care Salvage Diver Name Role Phone Gissel Guadarrama PA-C Primary Care Provider Nidhi Sweet Primary Care Provider [phone] Encounter Details Date Type Department Care Team (Late st Contact Info) Description 05/22/2022 Orders Only [facility] [address] [place] [address] Gissel Guadarrama PA-C Social History Tobacco Use Types Packs/Day Years Used Date Smoking Tobacco: Never Assessed Comments Unknown Sex and Gender Information Value Date Recorded Sex Assigned at Female 06/01/2022 11:39 AM EST Legal Sex Female 8:33 PM EDT Gender Identity Female 06/01/2022 11:39 AM EST Sexual Orientation Don't know 06/08/2022 4: 37 PM EST documented as of this encounter Plan of Treatment Upcoming Encounters Date Type Department Care Team (Late st Contact Info) Description 04/26/2025 9:40 AM EST Office Visit [facility] [address] [place] [address] Nidhi [place] FNP [address] [place] [address] documented as of this encounter Visit Diagnoses Not on filedocumented in this encounter Care Teams Salvage Diver Relationship Specialty Start Date End Date Gissel Guadarrama PA-C PCP - General Family Medicine 05/22/22 08/11/24 Nidhi [place] FNP [address] [facility] [place] [address] PCP - General Family Medicine 08/12/24 documented as of this encounter
--- OUTSIDE RECORDS SUMMARY | 2025-04-15 18:38 | XMS_ITS | Encounter Summary ---
Author Organization [facility] Address [address] [place] [address] Phone Care Team Providers Care Wholesale Parts Salesperson Name Role Phone RiannaSavanna buckley [place] AUTOMOBILE SERVICE STATION MECHANIC Unavailable [phone] Shamika Lucio AUTOMOBILE SERVICE STATION MECHANIC Unavailable [phone] Eun Jacques MD Unavailable [phone] Shabbir Vogel NP Primary Care Provider [phone] Neva Parada MD Primary Care Provider [phone] Encounter Details Date Type Department Care Team (Late st Contact Info) Description 10/26/2020 Procedure Pass [facility] Endoscopy Admitting Dept Virtual Department [address] [place] [address] Social History Tobacco Use Types Packs/Day Years [...] on filedocumented in this encounter Care Teams Wholesale Parts Salesperson Relationship Specialty Start Date End Date Shabbir Vogel NP [address] [place] [address] [email or web address] PCP - General Family Medicine 6/24/20 5/26/21 Neva Parada MD [address] [place] [address] [email or web address] PCP - General Internal Medicine 10/27/20 Savanna Julian NP [address] [place] [phone] Historical LMR Provider 03/20/17 2 Shamika Lucio NP [address] [place] [address] Historical LMR Provider 03/20/17 2 Eun Jacques MD [address] [place] [address] [email or web address] Historical LMR Provider 03/20/1706/10 documented as of this encounter Additional Source Comments The information contained in this document represents components of the legal health record. It is not the complete legal health record.[facility]
--- OUTSIDE RECORDS SUMMARY | 2025-04-15 18:38 | XMS_ITS | Clinical Summary ---
Author Organization [facility] Address [address] [place] [address] [address] [place] [address] Care Team Providers Care Tripe Cooker Name Role Phone Nidhi [place] PSYCHOLOGICAL SCIENCE PROFESSOR Primary Care Provider [phone] Allergies Active Allergy Reactions Criticality Noted Date [...] Department Care Team Description 02/08/2025 Toribio Eduardo [facility] [address] [place] [address] Nihdi [place] FNP Depressive disorder from Last 3 Months Immunizations Immunization Administration Dates Next Due Influenza Injectable Quadriv alant Preservative Free IIV4 MDCK 04/06/2020 Influenza injectable quadriv alent preservative free 04/22/2022 Influenza, IIV3, injectable 03/24/2021,1 06/06/2019,03/08/2015,2013 Influenza, Split (incl. ashley fied surface antigen) 03/17/2013,05/17/2011,07/14/2009 MMR 11/03/1991 Moderna Covid-19 Vaccine 12+ 07/11/2020,06/16/19 21 Novel [id number], all formulations 07/14/2009 TD (adult), 2 Lf [...] AM EST Sexual Orientation Don't know 06/08/2022 4 :37 PM EST Last Filed Vital Signs Vital [...] 04/27/2024 2:24 PM EST Plan of Treatment Upcoming Encounters Date Type Department Care Team (Late st Contact Info) Description 04/26/2025 9:40 AM EST Office Visit [facility] [address] [place] [address] Nidhi [place] FNP [address] [place] [address] Health Maintenance Due Date Last Done Comments CT Colonography 1968 FIT DNA/Cologuard 1968 FIT 1968 FOBT 1968 HIV Screening 1970 SDOH Screening 1968 Sigmoidoscopy 1968 Alcohol/Substance Use Screening 1980 Hepatitis C Screening 01/10/1986 Hepatitis B Vaccines (1 of 3 - 19+ 3-dose series) 01/10/1987 Pneumococcal Vaccine: 50+ Years (1 of 2 - PCV) 01/10/1987 HPV/Cotest 01/10/1998 RSV Patients and Patients Aged 60 years or older (1 - Risk 50-74 years 1-dose series) 01/10/2018 Zoster Vaccines (1 of 2) 01/10/2018 Mammogram 07/07/2022 07/07/2020, 02/0 09/2020, 07/07/2020 Cervical Cancer Screening 10/19/2023 Pap Smear 10/19/2023 10/18/2020 COVID-19 Vaccine ( season) 2025 07/24/2021, 07/11/2020, 06/16/2020 Depression Monitoring 02/12/2025 08/12/2024, 025 Disability Screening 08/12/2025 08/12/2024 Tobacco Screening 08/12/2025 08/12/2024 Lipid Panel 08/17/2029 08/17/2024, 09/02, 11/25/2019 Colonoscopy 10/01/2030 10/27/2020 Colorectal Cancer Screening 10/01/2030 DTaP/Tdap/Td Vaccines (3 - Td or Tdap) 06/12/2032 06/12/2022, 07/19/2011, 12/10/2005 Influenza Vaccine Completed 03/19/2025, , 03/24/2021, Additional history exists HIB Vaccines Aged Out No longer eligi [...] Procedure Name Priority Date/Time Associated Diagnosis Comments AMB REFERRAL TO NEUROLOGY Routine 03/29/2025 Other migraine without status migrainosus, not intractable Sudden onset of severe headache Neuralgia LIPID PANEL, STANDARD Routine 08/17/2024 8:02 AM EDT Other hyperlipidemia COLONOSCOPY Routine 10/27/2020 12:00 AM EDT THIN PREP PAP Routine 10/18/2020 12:00 AM EDT BI MAMMOGRAM DIAGNOSTIC BILATERAL Routine 07/07/2020 3:07 PM EST from Last 3 Months or Most Recently Relevant to Health Maintenance Results * Referral to Neurology (03/29/2025) [facility] OUTPATIENT REFERRAL ORDER CHERYL Final Result * (ABNORMAL) Lipid Panel, Standard (08/17/2024 8:02 AM EDT) Pathologist [facility] Cholesterol, Total 312(H) 100 - 199 mg/dL [facility] Triglycerides 147 0 - 149 mg/dL [facility] HDL Cholesterol 88 >39 mg/dL [facility] VLDL Cholesterol Pablo 26 5 - 40 mg/dL [facility] LDL Chol Calc (NIH) 198(H) 0 - 99 mg/dL [facility] LDL Calc Comment: [facility] Comment: Consider evaluating for Familial Hypercholesterolemia(FH), if clinically indicated. Blood Venous blood specimen / Unknown 08/17/2024 8:02 AM EDT 08/17/2024 Narrative [facility] 1 - 08/18/2024 12:05 AM EDT Performed at: 01 - [facility] [id number] Retail Manager In Training: Lyla Cabrera MD, Phone: [phone] [facility] LAB BLOOD ORDERABLES Gifty l Result [facility] * -EGD-COLONOSCOPY (10/27/2020 12:00 AM EDT) Anatomical Region Laterality Modality Endoscopy 10/27/2020 Narrative 10/27/2020 12:00 AM EDT Refer to Fovea for result details [facility] Procedure: -EGD-COLONOSCOPY Procedure Note ProviderRosina MD - 09/27/2022 Refer to [facility]a for result details [facility] Procedure: -EGD-COLONOSCOPY Historical Provider ENDOSCOPY PROCEDURE ORDER CHERYL Final Result * THIN PREP PAP (10/18/2020 12:00 AM EDT) Historical Provider LAB CYTOLOGY ORDERABLES F inal Result [facility] [address] [place] [address] * BI MAMMOGRAM SCREENING WITH TOMOSYNTHESIS WITH CAD (BILATERAL) (07/07/2020 3:07 PM EST) Anatomical Region Laterality Modality Breast Bilateral Mammography 07/07/2020 3:07 PM EST Narrative 07/07/2020 8:16 PM EST Refer to Fovea for result details [facility] Procedure: BI MAMMOGRAM SCREENING WITH TOMOSYNTHESIS WITH CAD (BILATERAL) Procedure Note Provider, Historical, - 08/25/2022 Refer to Damian for result details [facility] Procedure: BI MAMMOGRAM SCREENING WITH TOMOSYNTHESIS WITH CAD(BILATERAL) Historical Provider IMG BI PROCEDURES Final R esult from Last 3 Months or Most Recently Relevant to Health Maintenance Care Teams Tripe Cooker Relationship Specialty Start Date End Date Nidhi [place] FNP [address] [place] [address] PCP - General Family Medicine 08/12/24
--- OUTSIDE RECORDS SUMMARY | 2025-04-15 18:38 | XMS_ITS | Encounter Summary ---
Author Organization [facility] Address [facility] [employer] [facility] [address] [place] [address] Phone Care Team Providers Care Popcorn Candy Maker Name Role Phone Neva Parada MD Primary Care Provider [phone] Encounter Details Date Type Department Care Team (Late st Contact Info) Description 06/28/2022 Ancillary Orders [facility], X-Ray [address] [address] Gissel Guadarrama PA [address] [place] [address]. [place] [address] [email or web address] Acute pain of right shoulder Social History Tobacco Use Types Packs/Day Years [...] documented as of this encounter Results * XR SHOULDER 2 VIEWS (RIGHT) (07/20/2022 8:32 AM EST) Anatomical Region Laterality Modality Shoulder Right Computed Radiogr aphy 07/20/2022 10:2 8 PM EST Impressions 07/20/2022 10:29 PM EST Worsening acromioclavicular joint degenerative change when compared to 01/29/2020. Narrative 07/20/2022 10:29 PM EST XR SHOULDER 2 OR MORE VIEWS (RIGHT) COMPARISON: XR SHOULDER 2 OR MORE VIEWS (BILATERAL) FINDINGS: No acute fracture or dislocation. Glenohumeral alignment within normal limits. Glenohumeral joint space preserved. Mild acromioclavicular joint space narrowing with increasing prominence of right distal clavicular subchondral cyst formation, may reflect distal clavicular osteolysis related to overuse. Procedure Note Lyndsey Llanes MD - 07/20/2022 XR SHOULDER 2 OR MORE VIEWS (RIGHT) COMPARISON: XR SHOULDER 2 OR MORE VIEWS (BILATERAL) FINDINGS: No acute fracture or dislocation. Glenohumeral alignment within normallimits. Glenohumeral joint space preserved. Mild acromioclavicular joint space narrowing with increasing prominence ofright distal clavicular subchondral cyst formation, may reflect distalclavicular osteolysis related to overuse. IMPRESSION: Worsening acromioclavicular joint degenerative change when compared to01/29/2020. Gissel GARAY IMG XR UPPER EXTREMITY Final Result documented in this encounter Visit Diagnoses Diagnosis Acute pain of right shoulder Acute pain of right shoulder documented in this encounter Care Teams Popcorn Candy Maker Relationship Specialty Start Date End Date Neva Parada MD [address] [place] [address] [email or web address] PCP - General Internal Medicine 10/27/20 documented as of this encounter Additional Source Comments The information contained in this document represents components of the legal health record. It is not the complete legal health record.[facility]
--- OUTSIDE RECORDS SUMMARY | 2025-04-15 18:38 | XMS_ITS | Encounter Summary ---
Author Organization [facility] Address [address] [place] [address] Phone Care Team Providers Care Horticultural Nursery Assistant Name Role Phone Savanna Julian [place] TREASURY MANAGER Unavailable Shamika Lucio TREASURY MANAGER Unavailable [phone] Eun Jacques MD Unavailable [phone] Shabbir Vogel NP Primary Care Provider [phone] Neva Parada MD Primary Care Provider [phone] Encounter Details Date Type Department Care Team (Late st Contact Info) Description 03/29/2020 Ancillary Orders Virtual Department [address] [place] [address] Shabbir Vogel NP [address] [place] [address] [email or web address] Breast screening Social History Tobacco Use Types Packs/Day Years Used Date Smoking Tobacco: Never Smokeless Tobacco: Never Alcohol Use Standard Drinks/Week Comments Not Currently 0 (1 standard drink = 0.6 oz pur e alcohol) Comments Unknown Sex and Gender Information Value Date Recorded Sex Assigned at Not on file Legal Sex Female 9:37 PM EDT Gender Identity Not on file Sexual Orientation Not on file documented as of this encounter Plan of Treatment Not on file documented as of this encounter Results * BI MAMMOGRAM SCREENING WITH TOMOSYNTHESIS WITH [...] could obscurea lesion on mammography. Shabbir Vogel TREASURY MANAGER IM MG EXAMS Final Result documented in this encounter Visit Diagnoses Diagnosis Breast screening Breast screening, unspecified Breast screening Breast screening, unspecified documented in this encounter Care Teams Horticultural Nursery Assistant Relationship Specialty Start Date End Date Shabbir Vogel NP [address] [place] [address] [email or web address] PCP - General Family Medicine 11/25/19 10/26/20 Neva Parada MD [address] [place] [address] PCP - General Internal Medicine 10/27/20 Savanna Julian NP [address] [place] [phone] Historical LMR Provider 03/20/17 2 Shamika Lucio NP [address] [place] [address] Historical LMR Provider 03/20/17 2 Eun Jacques MD [address] [place] [address] [email or web address] Historical LMR Provider 03/20/1706/10 documented as of this encounter Additional Source Comments The information contained in this document represents components of the legal health record. It is not the complete legal health record.[facility]
--- OUTSIDE RECORDS SUMMARY | 2025-04-15 18:38 | XMS_ITS | Encounter Summary ---
Author Organization [facility] Address [address] [place] [address] Phone Care Team Providers Care Product Safety Expert Name Role Phone Neva Parada MD Primary Care Provider [phone] Reason for Referral * Outpatient Procedure - Closed Specialty Diagnoses / Procedures Referred By Contac t Referred To Contact Radiology Diagnoses Neuralgia Procedures US Carotid Duplex Complete (Bilateral) Nidhi Spencer CNP Phone: tel: fax: Referral ID Status Reason Start Date Expiration Date Visits Re quested Visits Authorized [id number] Closed 08/13/2024 08/13/2025 1 1 Encounter Details Date Type Department Care Team (Latest Contact Info) Description 08/13/2024 Transcribe Orders Virtual Department [address] [place] [address] Nidhi Spencer CNP [address] [place] [address] Neuralgia (Primary Dx) Social History Tobacco Use Types [...] documented as of this encounter Results * US Carotid Duplex Complete (Bilateral) (08/19/2024 6:07 PM EDT) Anatomical Region Laterality Modality Heart, Thoracic Vasculature, Neck Ultrasound 08/20/2024 7:35 AM EDT Impressions 08/20/2024 2:02 PM EDT 1. No stenosis noted in the right internal carotid artery. 2. No stenosis noted in the left internal carotid artery. 3. No stenosis noted in the common carotid arteries bilaterally. 4. Unremarkable external carotid arteries bilaterally. 5. Antegrade flow in the bilateral cervical vertebral arteries. 6. Normal examination of the bilateral subclavian arteries. STENOSIS: Internal carotid artery stenosis by duplex ultrasonography has been validated by comparing findings with angiographic stenosis. NASCET methods were used, where the most severe stenosis represents the numerator, and the normal internal carotid artery diameter distal to the stenosis where the oswald are parallel represents the denominator. Narrative 08/20/2024 2:02 PM EDT US CAROTID DUPLEX COMPLETE (BILATERAL) Referring clinician's provided indication for this examination in Epic: neuralgia TECHNIQUE: A duplex ultrasound evaluation of the common carotid, internal carotid, external carotid, vertebral, and subclavian arteries was performed using dougherty scale, color duplex and spectral Doppler analysis. COMPARISON: No previous relevant examinations. FINDINGS: Exam Quality: Technically adequate exam. RIGHT Common Carotid Artery (cm/s): Proximal Systolic: 88 Proximal Diastolic: 27 Distal Systolic: 82 Distal Diastolic: 32 Internal Carotid Artery (cm/s): Proximal Systolic: 73 Proximal Diastolic: 28 Mid Systolic: 60 Mid Diastolic: 26 Distal Systolic: 91 Distal Diastolic: 40 External Carotid Artery (cm/s): Systolic: 78 Diastolic: 18 Vertebral Artery (cm/s): Systolic: 44 Diastolic: 15 Subclavian Artery (cm/s): Systolic: 113 Diastolic: 14 ICA/CCA Ratio: 1.1 ICA Stenosis: Normal ICA Plaque: None Visualized LEFT Common Carotid Artery (cm/s): Proximal Systolic: 71 Proximal Diastolic: 20 Distal Systolic: 66 Distal Diastolic: 24 Internal Carotid Artery (cm/s): Proximal Systolic: 57 Proximal Diastolic: 22 Mid Systolic: 66 Mid Diastolic: 30 Distal Systolic: 65 Distal Diastolic: 31 External Carotid Artery (cm/s): Systolic: 53 Diastolic: 13 Vertebral Artery (cm/s): Systolic: 56 Diastolic: 22 Subclavian Artery(cm/s): Systolic: 57 Diastolic: 8 ICA/CCA Ratio: 1 ICA Stenosis: Normal ICA Plaque: None Visualized Abbreviations: CCA = Common Carotid Artery. ICA = Internal Carotid Artery. ECA = External Carotid Artery. Vert = Vertebral Artery. ICA/CCA Ratio = maximal ICA PSV divided by the distal CCA PSV. DIRECT TEST FINDINGS: Right: Doppler flow velocities and waveform contours are within normal limits throughout the internal carotid artery, no plaque is visualized. No plaque is visualized in the common carotid artery. Unremarkable external carotid artery. Antegrade flow is noted in the vertebral artery. The subclavian artery is patent. Left: Doppler flow velocities and waveform contours are within normal limits throughout the internal carotid artery, no plaque is visualized. No plaque is visualized in the common carotid artery. Unremarkable external carotid artery. Antegrade flow is noted in the vertebral artery. The subclavian artery is patent. Procedure Note Kylee Haile MD - 08/20/2024 US CAROTID DUPLEX COMPLETE (BILATERAL) Referring clinician's provided indication for this examination in Epic:neuralgia TECHNIQUE: A duplex ultrasound evaluation of the common carotid, internalcarotid, external carotid, vertebral, and subclavian arteries wasperformed using dougherty scale, color duplex and spectral Doppler analysis. COMPARISON: No previous relevant examinations. FINDINGS: Exam Quality: Technically adequate exam. RIGHT Common Carotid Artery (cm/s): Proximal Systolic: 88 Proximal Diastolic: 27 Distal Systolic: 82 Distal Diastolic: 32 Internal Carotid Artery (cm/s): Proximal Systolic: 73 Proximal Diastolic: 28 Mid Systolic: 60 Mid Diastolic: 26 Distal Systolic: 91 Distal Diastolic: 40 External Carotid Artery (cm/s): Systolic: 78 Diastolic: 18 Vertebral Artery (cm/s): Systolic: 44 Diastolic: 15 Subclavian Artery (cm/s): Systolic: 113 Diastolic: 14 ICA/CCA Ratio: 1.1 ICA Stenosis: Normal ICA Plaque: None Visualized LEFT Common Carotid Artery (cm/s): Proximal Systolic: 71 Proximal Diastolic: 20 Distal Systolic: 66 Distal Diastolic: 24 Internal Carotid Artery (cm/s): Proximal Systolic: 57 Proximal Diastolic: 22 Mid Systolic: 66 Mid Diastolic: 30 Distal Systolic: 65 Distal Diastolic: 31 External Carotid Artery (cm/s): Systolic: 53 Diastolic: 13 Vertebral Artery (cm/s): Systolic: 56 Diastolic: 22 Subclavian Artery(cm/s): Systolic: 57 Diastolic: 8 ICA/CCA Ratio: 1 ICA Stenosis: Normal ICA Plaque: None Visualized Abbreviations: CCA = Common Carotid Artery. ICA = Internal Carotid Artery. ECA =External Carotid Artery. Vert = Vertebral Artery. ICA/CCA Ratio = maximalICA PSV divided by the distal CCA PSV. DIRECT TEST FINDINGS: Right: Doppler flow velocities and waveform contours are within normallimits throughout the internal carotid artery, no plaque is visualized. [place] is visualized in the common carotid artery. Unremarkable externalcarotid artery. Antegrade flow is noted in the vertebral artery. Thesubclavian artery is patent. Left: Doppler flow velocities and waveform contours are within normallimits throughout the internal carotid artery, no plaque is visualized. [place] is visualized in the common carotid artery. Unremarkable externalcarotid artery. Antegrade flow is noted in the vertebral artery. Thesubclavian artery is patent. IMPRESSION: 1. No stenosis noted in the right internal carotid artery. 2. No stenosis noted in the left internal carotid artery. 3. No stenosis noted in the common carotid arteries bilaterally. 4. Unremarkable external carotid arteries bilaterally. 5. Antegrade flow in the bilateral cervical vertebral arteries. 6. Normal examination of the bilateral subclavian arteries. STENOSIS: Internal carotid artery stenosis by duplex ultrasonography hasbeen validated by comparing findings with angiographic stenosis. NASCETmethods were used, where the most severe stenosis represents thenumerator, and the normal internal carotid artery diameter distal to thestenosis where the oswald are parallel represents the denominator. Nidhi Spencer GRAVEL SCREENER CV US NEUROVASCULA R Final Result documented in this encounter Visit Diagnoses Diagnosis Neuralgia- Primary Unspecified neuralgia, neuritis, and radiculitis Neuralgia Unspecified neuralgia, neuritis, and radiculitis documented in this encounter Care Teams Product Safety Expert Relationship Specialty Start Date End Date Neva Parada MD [address] [place] [address] [email or web address] PCP - General Internal Medicine 10/27/20 documented as of this encounter Additional Source Comments The information contained in this document represents components of the legal health record. It is not the complete legal health record.[facility]
== END 2025-04-14 15:48 | disposition home or self-care (01) ==
LOC: HO.HOSX 15:47
PROVIDERS: Visit Provider Physician Assistant
DX: Z13.89 Encounter for screening for other disorder (principal)

== ENCOUNTER 2025-04-16 09:01 | Outpatient (REF) | payer OTHER, SELFPAY ==
--- NOTE | ~2025-04-16 | XR_ITS ---
EXAMINATION: XR ELBOW, LEFT CLINICAL INFORMATION: M25.522 - Pain in left elbow COMPARISON: X-ray 03/11/2025 TECHNIQUE: AP, lateral, and oblique views of the left elbow. FINDINGS: Mildly displaced intra-articular fracture of the lateral aspect of the radial head. Elbow joint are dictation is maintained. No significant joint space narrowing. No suspicious bony lesions. Small elbow joint effusion. No abnormal soft tissue calcification.. XR/XR elbow LT min 3V IMPRESSION: Mildly displaced intra-articular radial head fracture. Small elbow joint effusion. Electronically signed by: Todd Whitmore MD 04/16/2025 11:38 AM EST
== END 2025-04-16 09:02 | disposition home or self-care (01) ==
LOC: HO.HOSX 09:01
PROVIDERS: Visit Provider Physician Assistant
DX: S52.122D Displaced fracture of head of left radius, subsequent encounter for closed fracture with routine healing (principal); X58.XXXD Exposure to other specified factors, subsequent encounter
CPT/HCPCS: 73080; 99212

== ENCOUNTER 2025-04-16 09:37 | Outpatient (AMB) | payer OTHER, SELFPAY ==
--- NOTE | 2025-04-16 09:39 | MHC.OFFVIS ---
Intake Visit Reasons: fu left elbow radial head fx w xrays Intake Note: Radha is a 55 year old female who presents today as a follow up for her left elbow radial head fracture. At her last visit on 03/11/25 discussed returning to work with light duty restriction of no patient contact and avoid lifting heavier than 5 lbs. At today's visit she states elbow is fine however concerned of shoulder pain. Complaints of achy pain that is located at the anterior side of shoulder that travels down to her fingers. States feeling a pulling sensation. Denies numbness or tingling. Allergies sulfamethoxazole (From Bactrim) Allergy (Verified 04/16/25 09:53) Redness of Skin trimethoprim (From Bactrim) Allergy (Verified 04/16/25 09:53) Redness of Skin Medication List - Last Reconciled 04/16/25 by Francesca Cantu PA-C atorvastatin 10 mg PO DAILY celecoxib (Celebrex) 200 mg PO BID 30 days fluoxetine 80 mg PO DAILY gabapentin 600 mg PO QID losartan 75 mg PO DAILY pantoprazole 40 mg PO BID propranolol 20 mg orally one a day as needed; HPI HPI fu left elbow radial head fx w xrays: Details: 55-year-old female returns to the office today for a follow-up left radial head fracture date of injury 03/11/2025. She states she has no pain however she may feel mild discomfort with certain activities. She has been working with light duty restrictions. No concerns today. 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 No open wounds. She can fully extend and flex the elbow she can supinate and pronate without pain. Neurovascularly intact. Results Reviewed Results Reviewed: X-rays of the left elbow obtained in the office today and reviewed by me show mild displacement of the radial head compared to previous images Assessment & Plan Assessment & Plan (1) Left radial head fracture: Code(s): S52.122A - Displaced fracture of head of left radius, initial encounter for closed fracture Category: Medical Plan: I explained to the patient with minimal displacement this is still treated conservatively. I stressed the importance of avoiding forceful supination and lifting. She should continue with light duty restrictions. I would like to see her back in 6-8 weeks with x-rays, sooner if needed. Orders: Orders XR elbow LT min 3V Today M25.522 - Pain in left elbow Coding Level of Care Code Global (03853) Diagnoses Left radial head fracture S52.122A
--- OUTSIDE RECORDS SUMMARY | 2025-04-16 10:40 | XMS_ITS | Encounter Summary ---
Author Organization [facility] Address [address] [place] [address] Phone Care Team Providers Care Industrial Roof Plumber Name Role Phone RiannaSavanna buckley [place] MUSEUM DIRECTOR Unavailable [phone] Shamika Lucio MUSEUM DIRECTOR Unavailable [phone] Eun Jacques MD Unavailable [phone] Shabbir Vogel NP Primary Care Provider [phone] Neva Parada MD Primary Care Provider [phone] Encounter Details Date Type Department Care Team (Late st Contact Info) Description 03/29/2020 Procedure [facility], [address] [address] Social History Tobacco Use Types Packs/Day Years [...] on filedocumented in this encounter Care Teams Industrial Roof Plumber Relationship Specialty Start Date End Date Shabbir Vogel NP [address] [place] [address] [email or web address] PCP - General Family Medicine 6/24/20 5/26/21 Neva Parada MD [address] [place] [address] [email or web address] PCP - General Internal Medicine 10/27/20 Savanna Julian NP [address] [place] [phone] Historical LMR Provider 03/20/17 2 Shamika Lucio NP [address] [place] [address] Historical LMR Provider 03/20/17 2 Eun Jacques MD [address] [place] [address] [email or web address] Historical LMR Provider 03/20/1706/10 documented as of this encounter Additional Source Comments The information contained in this document represents components of the legal health record. It is not the complete legal health record.[facility]
--- OUTSIDE RECORDS SUMMARY | 2025-04-16 10:40 | XMS_ITS | Encounter Summary ---
Author Organization [facility] Address [facility] [address] [place] [address] Phone Care Team Providers Care Contact Center Rep Name Role Phone Neva Parada MD Primary Care Provider [phone] Reason for Referral * MRI/CAT Scan - Closed Specialty Diagnoses / Procedures Referred By Contpeyton t Referred To Contact Radiology Diagnoses Sudden onset of severe headache Procedures MRI Brain CHG MRI BRAIN COMBO CHG MRI BRAIN Nidhi Spencer CNP Phone: tel: fax: Referral ID Status Reason Start Date Expiration Date Visits Re quested Visits Authorized [id number] Closed 04/27/2024 06/26/2024 1 1 Encounter Details Date Type Department Care Team (Latest Contact Info) Description 04/27/2024 Transcribe Orders Virtual Department [address] [place] [address] Nidhi Spencer CNP [address] [place] [address] Sudden onset of severe headache (Primary Dx) [...] clinician's provided indication for this examination in [facility]: Outside Radiology Order; headache TECHNIQUE: MRI [...] clinician's provided indication for this examination in [facility]:Outside Radiology Order; headache TECHNIQUE: MRI BRAIN [...] mass lesion, or hydrocephalus. Nidhi Cintron Garretar GAS STATION SUPERVISOR IMG MR HEAD/NECK F inal Result documented in this encounter Visit Diagnoses Diagnosis Sudden onset of severe headache- Primary Sudden onset of severe headache documented in this encounter Care Teams Contact Center Rep Relationship Specialty Start Date End Date Neva Parada MD [address] [place] [address] [email or web address] PCP - General Internal Medicine 10/27/20 documented as of this encounter Additional Source Comments The information contained in this document represents components of the legal health record. It is not the complete legal health record.[facility]
--- OUTSIDE RECORDS SUMMARY | 2025-04-16 10:40 | XMS_ITS | Clinical Summary ---
Author Organization [facility] Address [address] [facility] [address] [place] [address] Phone Care Team Providers Care Bakery Team Leader Name Role Phone Neva Parada MD Primary Care Provider [phone] Allergies Active Allergy Reactions Criticality Noted Date [...] SEE NARRATIVE - 10/26/2020 11:33 [place] [address] Machine Iii Coremaker: Alicia Heath MD COAT FELLER Cytology Report FINAL DIAGNOSIS A. PAP SMEAR [...] 52, 56, 58, 59, 66, 68) by Penemarie K Murphy Onclarity HR-HPV analysis. Clinical correlation is advised. This HPV test was performed at [facility], [address] [place] [address]. This test has been FDA approved for [facility] cervical cytology specimens. The accuracy and precision of this test for all other specimen sources has been verified in the Cytopathology Laboratory of the [facility] and has not been cleared or approved by the U.S. Food and Drug Administration. Clinical correlation is advised. CLINICAL HISTORY Date of Last Menstrual Period: Not Provided Menstrual History: Post Menopausal Other Clinical Conditions: Screening Pap SPECIMEN SOURCE A: PAP SMEAR (SUREPATH) CE Patient Name: KAHLIL TOLEDO : 1970 (Age: 50) Sex: F Institution: [facility] Location: [facility] Date of Collection: 10/18/2020 Date of [...] (11/25/2019 4:16 PM EDT) HDL 64 mg/dL [facility] Comment: Interpretation <40 mg/dL: Low HDL cholesterol (major risk factor for CHD) Greater than or equal to 60 mg/dL: High HDL cholesterol ( negative risk factor for CHD) HDL - cholesterol is affected by a number of factors, e.g. smoking, excerise, hormones, sex and age. CHOLESTEROL 225 0 - 240 mg/dL [facility] TRIGLYCERIDES 122 30 - 160 mg/dL [facility] LDL 137(H) 50 - 129 mg/dL [facility] Comment: LDL levels in terms of risk for coronary heart disease: <100 mg/dL: Optimal 100-129 mg/dL: Near or above optimal 130-159 mg/dL: Borderline high 160-189 mg/dL: High >190 mg/dL: Very High CARDIAC RISK RATIO 3.5 3.3 - 4.4 C [facility] Blood 11/25/2019 4:16 PM EDT 11/25/2019 4:24 PM EDT Shabbir Vogel NP LAB BLOOD BKR ORDERABLES Gifty l Result [facility] [address] [place] [address] from Last 3 Months or Most Recently Relevant to Health Maintenance [facility] [id number] [place] [phone] [place] [phone] [place] [id number] [place] [phone] [place] [phone] [place] [phone] [phone] [place], [place] [address] Care Teams Bakery Team Leader Relationship Specialty Start Date End Date Neva Parada MD [address] [place] [address] [email or web address] PCP - General Internal Medicine 10/27/20 Additional Source Comments The information contained in this document represents components of the legal health record. It is not the complete legal health record.[facility]
--- OUTSIDE RECORDS SUMMARY | 2025-04-16 10:40 | XMS_ITS | Encounter Summary ---
Author Organization [employer] Address [address] [place] [address] [facility] [place] [address] Care Team Providers Care Newscast Producer Name Role Phone Gissel Guadarrama PA-C Primary Care Provider Nidhi Sweet Primary Care Provider [phone] Encounter Details Date Type Department Care Team (Late st Contact Info) Description 05/22/2022 Orders Only [facility] [address] [place] [address] Gissel Guadarrama PA-C Social History Tobacco Use [...] Description 04/26/2025 9:40 AM EST Office Visit [facility] [address] [place] [address] Nidhi Spencer FNP [address] [place] [address] documented as of this encounter Visit Diagnoses Not on filedocumented in this encounter Care Teams Newscast Producer Relationship Specialty Start Date End Date Gissel Guadarrama PA-C PCP - General Family Medicine 05/22/22 08/11/24 Nidhi Spencer FNP [address] [place] [address] PCP - General Family Medicine 08/12/24 documented as of this encounter
--- OUTSIDE RECORDS SUMMARY | 2025-04-16 10:40 | XMS_ITS | Encounter Summary ---
Author Organization [facility] Address [address] [place] [address] Phone Care Team Providers Care Hogshead Packer Name Role Phone Neva Parada MD Primary Care Provider [phone] Reason for Referral * Outpatient Procedure - Closed Specialty Diagnoses / Procedures Referred By Contac t Referred To Contact Radiology Diagnoses Neuralgia Procedures US Carotid Duplex Complete (Bilateral) Nidhi Spencer CNP Phone: tel: fax: Referral ID Status Reason Start Date Expiration Date Visits Re quested Visits Authorized [id number] Closed 08/13/2024 08/13/2025 1 1 Encounter Details Date Type Department Care Team (Latest Contact Info) Description 08/13/2024 Transcribe Orders Virtual Department [address] [place] [address] Nidhi Spencer CNP [address] [place] [address] Neuralgia (Primary Dx) Social History Tobacco Use [...] are parallel represents the denominator. Nidhi Spencer EXTRACTIONS TECHNICIAN CV US NEUROVASCULA R Final Result documented in this encounter Visit Diagnoses Diagnosis Neuralgia- Primary Unspecified neuralgia, neuritis, and radiculitis Neuralgia Unspecified neuralgia, neuritis, and radiculitis documented in this encounter Care Teams Hogshead Packer Relationship Specialty Start Date End Date Neva Parada MD [address] [place] [address] [email or web address] PCP - General Internal Medicine 10/27/20 documented as of this encounter Additional Source Comments The information contained in this document represents components of the legal health record. It is not the complete legal health record.[facility]
--- OUTSIDE RECORDS SUMMARY | 2025-04-16 10:40 | XMS_ITS | Encounter Summary ---
Author Organization [facility] Address [address] [place] [address] Phone Care Team Providers Care Acetylene Torch Operator Name Role Phone Savanna Julian [place] HEAVY TRUCK TECHNICIAN Unavailable Shamika Lucio HEAVY TRUCK TECHNICIAN Unavailable [phone] Eun Jacques MD Unavailable [phone] Shabbir Vogel NP Primary Care Provider [phone] Neva Parada MD Primary Care Provider [phone] Encounter Details Date Type Department Care Team (Late st Contact Info) Description 03/29/2020 Ancillary Orders Virtual Department [address] [place] [address] Shabbir Vogel NP [address] [place] [address] [email or web address] Breast screening Social History Tobacco Use [...] could obscurea lesion on mammography. Shabbir Vogel HEAVY TRUCK TECHNICIAN IM MG EXAMS Final Result documented in this encounter Visit Diagnoses Diagnosis Breast screening Breast screening, unspecified Breast screening Breast screening, unspecified documented in this encounter Care Teams Acetylene Torch Operator Relationship Specialty Start Date End Date Shabbir Vogel NP [address] [place] [address] [email or web address] PCP - General Family Medicine 11/25/19 10/26/20 Neva Parada MD [address] [place] [address] [email or web address] PCP - General Internal Medicine 10/27/20 Savanna Julian NP [address] [place] [phone] Historical LMR Provider 03/20/17 2 Shamika Lucio NP [address] [place] [address] Historical LMR Provider 03/20/17 2 Eun Jacques MD [address] [place] [address] [email or web address] Historical LMR Provider 03/20/1706/10 documented as of this encounter Additional Source Comments The information contained in this document represents components of the legal health record. It is not the complete legal health record.[facility]
--- OUTSIDE RECORDS SUMMARY | 2025-04-16 10:40 | XMS_ITS | Encounter Summary ---
Author Organization [facility] Address [facility] [address] [address] Phone Care Team Providers Care Senior Control Systems Engineer Name Role Phone Neva Parada MD Primary Care Provider [phone] Encounter Details Date Type Department Care Team (Late st Contact Info) Description 04/27/2024 Procedure Pass [facility] [place] [facility], [address] [address] Social History Tobacco Use Types Packs/Day Years [...] on filedocumented in this encounter Care Teams Senior Control Systems Engineer Relationship Specialty Start Date End Date Neva Parada MD [address] [place] [id number] [email or web address] PCP - General Internal Medicine 10/27/20 documented as of this encounter Additional Source Comments The information contained in this document represents components of the legal health record. It is not the complete legal health record.[facility]
--- OUTSIDE RECORDS SUMMARY | 2025-04-16 10:41 | XMS_ITS | Encounter Summary ---
Author Organization [facility] Address [facility]: [facility] [address] [place] [address] Phone Care Team Providers Care Grinder Set Up Operator Name Role Phone Neva Parada MD Primary Care Provider [phone] Encounter Details Date Type Department Care Team (Late st Contact Info) Description 06/28/2022 Ancillary Orders [facility], X-Ray [address] [address] Gissel Guadarrama PA [address] [place] [address]. [place] [address] [email or web address] Acute pain of right shoulder Social [...] shoulder documented in this encounter Care Teams Grinder Set Up Operator Relationship Specialty Start Date End Date Neva Parada MD [address] [place] [address] [email or web address] PCP - General Internal Medicine 10/27/20 documented as of this encounter Additional Source Comments The information contained in this document represents components of the legal health record. It is not the complete legal health record.[facility]
--- OUTSIDE RECORDS SUMMARY | 2025-04-16 10:41 | XMS_ITS | Clinical Summary ---
Author Organization [email or web address] Address [address] [place] [address] 7t [place] [address] Care Team Providers Care Brass Cutter Name Role Phone Nidhi Spencer SUPPLY ASSISTANT Primary Care Provider [phone] Allergies Active Allergy Reactions Criticality Noted Date [...] Department Care Team Description 02/08/2025 Toribio Eduardo [facility] [address] [place] [address] Nidhi Spencer FNP Depressive disorder from Last 3 Months Immunizations Immunization Administration Dates Next Due Influenza Injectable Quadriv alant Preservative Free IIV4 MDCK 04/06/2020 Influenza injectable quadriv alent preservative free 04/22/2022 Influenza, IIV3, injectable 03/24/2021,1 06/06/2019,03/08/2015,2013 Influenza, Split (incl. ashley fied surface antigen) 03/17/2013,05/17/2011,07/14/2009 MMR 11/03/1991 Moderna Covid-19 Vaccine 12+ 07/11/2020,06/16/19 21 Novel [id number], all formulations 07/14/2009 TD (adult), 2 Lf [...] Description 04/26/2025 9:40 AM EST Office Visit [facility] [address] [place] [address] Nidhi Spencer FNP [address] [place] [address] Health Maintenance Due Date Last Done Comments [...] Maintenance Results * Referral to Neurology (03/29/2025) [facility] OUTPATIENT REFERRAL ORDER CHERYL Final Result * (ABNORMAL) Lipid Panel, Standard (08/17/2024 8:02 AM EDT) Pathologist [facility] Cholesterol, Total 312(H) 100 - 199 mg/dL [...] 12:05 AM EDT Performed at: 01 - [facility] [id number] [place] Clam: Lyal Cabrera MD, Phone: [phone] [facility] LAB BLOOD ORDERABLES Gifty l Result [facility] [...] Provider LAB CYTOLOGY ORDERABLES F inal Result [facility] [address] [place] [address] * BI MAMMOGRAM SCREENING WITH [...] Recently Relevant to Health Maintenance Care Teams Brass Cutter Relationship Specialty Start Date End Date Nidhi Spencer FNP [address] [place] [address] PCP - General Family Medicine 08/12/24
--- OUTSIDE RECORDS SUMMARY | 2025-04-16 10:41 | XMS_ITS | Encounter Summary ---
Author Organization [facility] Address [address] [place] [address] Phone Care Team Providers Care Investigations Manager Name Role Phone RiannaSavanna buckley Alexandria RN COMPLEX CARE Unavailable [phone] Shamika Lucio RN COMPLEX CARE Unavailable [phone] Eun Jacques MD Unavailable [phone] Shabbir Vogel NP Primary Care Provider [phone] Neva Parada MD Primary Care Provider [phone] Encounter Details Date Type Department Care Team (Late st Contact Info) Description 10/26/2020 Procedure Pass [facility] Admitting Dept Virtual Department [address] [place] [address] Social History Tobacco Use Types Packs/Day Years [...] on filedocumented in this encounter Care Teams Investigations Manager Relationship Specialty Start Date End Date Shabbir Vogel NP [address] [place] [address] [email or web address] PCP - General Family Medicine 6/24/20 5/26/21 Neva Parada MD [address] [place] [address] [email or web address] PCP - General Internal Medicine 10/27/20 Savanna Julian NP [address] [place] [phone] Historical LMR Provider 03/20/17 2 Shamika Lucio NP [address] [place] [address] Historical LMR Provider 03/20/17 2 Eun Jacques MD [address] [place] [address] [email or web address] Historical LMR Provider 03/20/1706/10 documented as of this encounter Additional Source Comments The information contained in this document represents components of the legal health record. It is not the complete legal health record.[facility]
--- OUTSIDE RECORDS SUMMARY | 2025-04-16 10:41 | XMS_ITS | Encounter Summary ---
Author Organization [facility] Address [address] [place] [address] Phone Care Team Providers Care Band Head Saw Operator Name Role Phone Savanna Julian CUSTOMER SERVICE SALES CONSULTANT Unavailable [phone] Shamika Lucio CUSTOMER SERVICE SALES CONSULTANT Unavailable [phone] Eun Jacques MD Unavailable [phone] Eun Jacques MD Primary Care Provid er Rachel Conley MD Primary Care Provider [phone] Shabbir Vogel NP Primary Care Provider [phone] Neva Parada MD Primary Care Provider [phone] Encounter Details Date Type Department Care Team (Latest Contact Info) Description 08/28/2017 Ancillary Orders Virtual Department [address] [place], [place] [id number] Rachel Conley MD [address] [place], [place] [id number] [email or web address] Takotsubo cardiomyopathy Social History Tobacco Use Types [...] syndrome documented in this encounter Care Teams Band Head Saw Operator Relationship Specialty Start Date End Date Eun Jacques MD [address] [place] [address] [email or web address] PCP - General 06/06/17 08/28/17 Rachel Conley MD [address] [address] [email or web address] PCP - General Family Medicine 08/29/17 11/24/19 Shabbir Vogel NP [address] [place] [address] [email or web address] PCP - General Family Medicine 11/25/19 10/26/20 Neva Parada MD [address] [place] [address] [email or web address] PCP - General Internal Medicine 10/27/20 Savanna Julian NP [address] [place] [phone] Historical LMR Provider 03/20/17 2 Shamika Lucio NP [address] [place] [address] Historical LMR Provider 03/20/17 2 Eun Jacques MD [address] [place] [address] [email or web address] Historical LMR Provider 03/20/1706/10 documented as of this encounter Additional Source Comments The information contained in this document represents components of the legal health record. It is not the complete legal health record.[facility]
--- OUTSIDE RECORDS SUMMARY | 2025-04-16 10:41 | XMS_ITS | Encounter Summary ---
Author Organization [facility] Address [facility] [address] [place] [address] Phone Care Team Providers Care Oven Stripper Name Role Phone Neva Parada MD Primary Care Provider [phone] Encounter Details Date Type Department Care Team (Latest Contact Info) Description 06/11/2022 Transcribe Orders [facility] [address] 2nd [place] [address] Emi Squires PA-C [address], [address] [place] [address] [email or web address] Abdominal pain, epigastric (Primary Dx) Social History [...] EST) LIPASE 21 16 - 63 U/L [facility] Blood 06/11/2022 3:06 PM EST 06/11/2022 3:08 PM EST us Emi Squires PA-C LAB BLOOD BKR ORDERABLES Final Result [address] [address] * C-Reactive Protein (06/11/2022 3:06 PM EST) C REACTIVE PROTEIN <3.0 0.0 - 4.0 mg/L [facility] Blood 06/11/2022 3:06 PM EST 06/11/2022 3:08 PM EST Emi Squires PA-C LAB BLOOD BKR ORDERABLES Final Result [address] [address] * Comprehensive metabolic panel (06/11/2022 3:06 PM EST) SODIUM 138 133 - 146 mmol/L [facility] POTASSIUM 4.7 3.3 - 5.1 mmol/L [facility] CHLORIDE 101 96 - 108 mmol/L [facility] CO2 29 21 - 35 mmol/L [facility] BUN 15 6 - 19 mg/dL [facility] CREATININE 0.70 0.5 - 1.5 mg/dL [facility] GLUCOSE 80 70 - 99 mg/dL [facility] ALBUMIN 4.6 3.9 - 4.8 g/dL [facility] TOTAL PROTEIN 7.3 6.5 - 8.0 g/dL [facility] CALCIUM 9.8 8.4 - 10.3 mg/dL [facility] ALKALINE PHOSPHATASE 61 39 - 117 U/L [facility] TOTAL BILIRUBIN 0.2 0.0 - 1.2 mg/dL [facility] AST 18 0 - 37 U/L [facility] ALT 11 0 - 40 U/L [facility] GLOBULIN 2.7 1 - 4.8 g/dL [facility] EGFR 103 >59 mL/min/1.7 3m2 [facility] Comment:Estimated glomerular filtration rate calculated using the CKD-EPI refit equation. ANION GAP 13 10 - 20 mmol/L [facility] Blood 06/11/2022 3:06 PM EST 06/11/2022 3:08 PM EST us Emi Squires PA-C LAB BLOOD BKR ORDERABLES Final Result Performing Organization Address [facility]/ZIP Co de Phone Number [address] [address] * CBC (06/11/2022 3:06 PM EST) WBC 7.44 4.00 - 11.00 K/uL [facility] RBC 4.04 3.72 - 5.30 M/uL [facility] HGB 12.5 10.6 - 15.5 g/dL [facility] HCT 38.5 32.0 - 45.0 % [facility] PLT 292 140 - 430 K/uL [facility] MCV 95.3 78.0 - 97.0 fL [facility] MCH 30.9 25.0 - 33.0 pg [facility] MCHC 32.5 32.0 - 36.0 g/dL [facility] RDW 13.3 11.0 - 16.0 % [facility] MPV 9.9 8.4 - 12.8 fl [facility] Blood 06/11/2022 3:06 PM EST 06/11/2022 3:08 PM EST us Emi Squires PA-C LAB BLOOD BKR ORDERABLES Final Result Performing Organization Address [facility]/ZIP Co de Phone Number [address] [address] * Immunoglobulin A (06/11/2022 3:06 PM EST) IgA 272 70 - 400 mg/dL [facility] Blood 06/11/2022 3:06 PM EST 06/11/2022 3:08 PM EST us Emi Squires PA-C LAB BLOOD BKR ORDERABLES Final Result Performing Organization Address City/[facility]/ZIP Co de Phone Number [address] [place] [address] * Tissue transglutaminase IgA (06/11/2022 3:06 PM EST) TTG IGA ANTIBODY <1.2 <4.0 (Negative) U/mL [facility] Blood 06/11/2022 3:06 PM EST 06/11/2022 3:08 PM EST us Emi Squires PA-C LAB BLOOD BKR ORDERABLES Final Result [facility] [address] [place] [address] documented in this encounter Visit Diagnoses Diagnosis Abdominal pain, epigastric- Primary documented in this encounter Care Teams Oven Stripper Relationship Specialty Start Date End Date Neva Parada MD [address] [place] [id number] [email or web address] PCP - General Internal Medicine 10/27/20 documented as of this encounter Additional Source Comments The information contained in this document represents components of the legal health record. It is not the complete legal health record.[facility]
== END 2025-04-16 10:10 | disposition home or self-care (01) ==
LOC: HO.HOS 09:37
PROVIDERS: Visit Provider Physician Assistant
DX: S52.122A Displaced fracture of head of left radius, initial encounter for closed fracture (principal)
CPT/HCPCS: 99024

== ENCOUNTER → 2025-04-16 09:39 | Outpatient (BNV) | payer OTHER, SELFPAY | PROVIDERS: Visit Provider Radiology Diagnostic Ultrasound | DX: S52.122A Displaced fracture of head of left radius, initial encounter for closed fracture (principal); M25.422 Effusion, left elbow | CPT/HCPCS: 73080 ==

== ENCOUNTER 2025-04-21 10:00 | Outpatient (REF) | payer OTHER, SELFPAY ==
--- NOTE | 2025-04-21 12:22 | EEG_ITS ---
History: H/O chronic daily headaches, trigeminal neuralgia, menopause, depression- pt having episodes of tremors of hands and other parts of body while performing daily activities- they are involuntary movements or jumps during the night ranging from 20-30 occurrences- last episode was lat night - no confusion, LOC or incontinence noted with episodes Medication:Propranolol Technical Description Photic Stimulation: Completed Hyperventilation: Performed- Good effort Behavioral State: pleasant and cooperative State of Consciousness: awake and asleep Skull Defect: no Sedation: no Handedness: Right Duration:33 min 16 secs Tube Worker Comments: no clinical changes were noted during this tracing Last Meal:04/21/2025 7:30:00 AM Time / date of last symptom:04/20/2025 7:00:00 AM Description: This is a 16 channel EEG with an EKG lead. Patient is reported awake and asleep during the tracing. Background EEG rhythm at times was low amplitude fast with no obvious asymmetry. At other times, intermittent slowing was noted that was somewhat asymmetric with somewhat sharply controlled theta range discharges noted in left hemispheric and temporal area. Photic stimulation did not produce any significant driving. Hyperventilation was unremarkable. Cardiac lead did not reveal any significant abnormality. Some lead and muscle artifacts were noted. Impression: Mildly abnormal EEG suggestive of left hemispheric paroxysmal dysfunction MTDD
== END 2025-04-21 10:01 | disposition home or self-care (01) ==
LOC: HO.NEURO 10:00
PROVIDERS: Visit Provider Psychiatry & Neurology Neurology
DX: G40.909 Epilepsy, unspecified, not intractable, without status epilepticus (principal)
CPT/HCPCS: 95819

== ENCOUNTER → 2025-04-21 12:22 | Outpatient (BNV) | payer OTHER, SELFPAY | PROVIDERS: Visit Provider Psychiatry & Neurology Neurology | DX: G40.909 Epilepsy, unspecified, not intractable, without status epilepticus (principal) | CPT/HCPCS: 95819 ==